=== PATIENT | female | born 1985 | race Caucasian/White ===

== ENCOUNTER 2019-05-26 16:55 | Outpatient (CLI) | payer OTHER, SELFPAY ==
--- NOTE | ~2019-05-26 | XR_ITS ---
EXAMINATION: XR foot LT min 3V DATE: 05/26/2019 17:16 INDICATION: Lateral foot pain TECHNIQUE: Dorsoplantar, lateral, and 2 oblique views of the left foot were obtained. COMPARISON: None. FINDINGS: Soft tissue swelling surrounds the fifth metatarsal without evidence of acute underlying os seous abnormality. The joint spaces are normal. No acute osseous finding is seen. IMPRESSION: 1. Soft tissue swelling surrounding the fifth metatarsal which could reflect infection. No underlying acute osseous abnormality is seen. Reviewed, dictated and finalized at location A. [employer] HEL[employer] IMPRESSION: 1. Soft tissue swelling surrounding the fifth metatarsal which could reflect in fection. No underlying acute osseous abnormality is seen.
== END 2019-05-26 16:56 | disposition home or self-care (01) ==
LOC: CHSIMG 16:58
PROVIDERS: PCP Internal Medicine; Visit Provider Nurse Practitioner Family
DX: M79.672 Pain in left foot (principal)
CPT/HCPCS: 73630

== ENCOUNTER 2019-05-27 08:47 | Outpatient (CLI) | payer OTHER, SELFPAY ==
[2019-05-27 08:56] LABS: Basophils Absolute Auto 0.07 K/mm3 (0.00-0.10); Basophils Percent Auto 0.8 % (0.0-1.0); Eosinophils Percent Auto 3.6 % (1.0-6.0); Hematocrit 39.6 % (35.0-49.0); Hemoglobin 13.4 g/dL (12.0-15.0); Immature Granulocyte Absolute 0.03 K/mm3 (0.00-0.00); Immature Granulocyte Percent A 0.4 % (0.0-0.0); Lymphocytes Absolute Auto 2.53 K/mm3 (1.10-4.50); Lymphocytes Percent Auto 30.6 % (18.0-42.0); Mean Corpuscular HGB Conc 33.8 g/dL (32.0-36.0); Mean Corpuscular Hemoglobin 31.1 pg (27.0-31.0); Mean Corpuscular Volume 91.9 fL (78.0-102.0); Mean Platelet Volume 10.1 fl (9.2-11.8); Monocytes Absolute Auto 0.76 K/mm3 (0.10-0.90); Monocytes Percent Auto 9.2 % (2.0-11.0); Neutrophils Absolute Auto 4.6 K/mm3 (1.7-7.2); Neutrophils Percent Auto 55.4 % (50.0-70.0); Platelet Count Result 292 K/mm3 (150-420); Red Blood Count 4.31 M/mm3 (4.20-5.40); Red Cell Distribution Width 12.5 % (11.6-14.4); White Blood Count 8.3 K/mm3 (4.8-10.8)
[2019-05-27 09:00] LABS: Add Urine Microscopic? NO; Appearance Urine Clear (Clear); Bilirubin Urine Negative (Negative); Blood Urine Negative (Negative); Color Urine Yellow (Yellow); Glucose Urine UA Negative (Negative); Ketones Urine Negative (Negative); Leukocyte Esterase Ur Negative LEU/UL (Negative); Nitrate Urine Negative (Negative); Protein Urine Negative (Negative); Urobilinogen Urine 0.2 mg/dL (0.2-1.0); pH Urine 6.5 (5.0-8.0)
[2019-05-27 09:46] LABS: Alanine Aminotransferase 56 U/L (14-59); Albumin Level 3.9 g/dL (3.4-5.0); Alkaline Phosphatase 58 U/L (46-116); Anion Gap 15.3 mmol/L (7-16); Aspartate Amino Transferase 28 U/L (15-37); Bilirubin,Total 0.3 mg/dL (0.00-1.00); Blood Urea Nitrogen 19 mg/dL (7-18); Calcium 8.8 mg/dL (8.5-10.1); Carbon Dioxide 25 mmol/L (21-32); Chloride 104 mmol/L (98-108); Cholesterol 220 mg/dL (0-200); Estimated Glomerular Filt Rate 60; Free T4 Free Thyroxine 0.58 ng/dL (0.76-1.46); Glucose 93 mg/dL (70-99); HDL Direct 69 mg/dL (40-60); LDL Cholesterol Calculated 138 mg/dL (<130); Osmolality Calculated 292 mOsm/kg (285-295); Potassium 4.3 mmol/L (3.5-5.1); Sodium 140 mmol/L (136-145); Thyroid Stimulating Hormone 13.76 uIU/mL (0.36-3.74); Total Protein 7.1 g/dL (6.4-8.2); Triglycerides 63 mg/dL (0-150)
[2019-05-27 11:27] LABS: CRP < 0.2 mg/dL (0.0-0.9)
== END 2019-05-27 08:48 | disposition home or self-care (01) ==
LOC: CHSLAB 08:47
PROVIDERS: PCP Internal Medicine; Visit Provider Nurse Practitioner Family
DX: Z00.00 Encounter for general adult medical examination without abnormal findings (principal)
CPT/HCPCS: 36415; 80053; 80061; 81003; 82785; 84439; 84443; 84550; 85025; 86003; 86140

== ENCOUNTER → 2019-06-19 09:06 | Outpatient (CLI) | payer OTHER, SELFPAY ==
--- NOTE | ~2019-06-19 | XR_ITS ---
EXAMINATION: XR femur RT min 2V DATE: 06/19/2019 09:48 INDICATION: Swelling and discomfort at the anterior lower thigh post injury 2 1/2 years prior. TECHNIQUE: AP and lateral views of the right thigh/femur were obtained on overlapping images. COMPARISON: None. FINDINGS: Alignment is normal. No fracture. Joint spaces are normal. Soft tissues are unremarkable. IMPRESSION: 1. Negative right thigh/femur radiographs. Reviewed, dictated and finalized at location A. [employer]
== END ==
PROVIDERS: PCP Internal Medicine; Visit Provider Surgery Plastic and Reconstructive Surgery
DX: R22.41 Localized swelling, mass and lump, right lower limb (principal)
CPT/HCPCS: 73552

== ENCOUNTER → 2019-07-16 08:59 | Outpatient (CLI) | payer OTHER, SELFPAY ==
--- NOTE | ~2019-07-16 | MR_ITS ---
EXAMINATION: MR femur RT wo/w con DATE: 07/16/2019 10:24 INDICATION: Right anterior thigh pain and swelling. TECHNIQUE: Magnetic resonance imaging (MRI) of the right femur was performed without and with 19 mm M ultiHance intravenous contrast. Sequences included axial, coronal, and sagittal T1-weighted FSE and T 2-weighted FS FSE, axial T1-weighted FS FSE, and postcontrast axial, coronal, and sagittal T1-weighte d FS FSE. COMPARISON: Right femur radiographs 06/19/2019 FINDINGS: There is lateral subluxation of patella. No fracture. Bone marrow signal intensity is daljit l. There is moderate osteoarthritis of patellofemoral compartment and mild osteoarthritis of medial a nd lateral compartments. There is a small knee joint effusion. There is anterior and lateral subcutan eous fat stranding in the distal thigh. The muscles demonstrate normal signal intensity. There is no abnormal mass. IMPRESSION: 1. Moderate right knee osteoarthritis. 2. Small right knee joint effusion. 3. Subcutaneous fat stranding in the anterior and lateral distal thigh, likely inflammation/scarring. Reviewed, dictated and finalized at location A.
[2019-07-16 09:29] LABS: Estimated Glomerular Filt Rate > 60
== END ==
PROVIDERS: Visit Provider Surgery Plastic and Reconstructive Surgery
DX: M17.11 Unilateral primary osteoarthritis, right knee (principal); M25.461 Effusion, right knee
CPT/HCPCS: 36415; 73720; A9577

== ENCOUNTER 2020-02-19 00:50 | Outpatient (CLI) | payer OTHER, SELFPAY ==
[2020-02-19 20:27] LABS: SARS-CoV-2 RNA PCR Negative
== END 2020-02-19 00:51 | disposition home or self-care (01) ==
LOC: ANHCOVIDDT 00:50
PROVIDERS: Visit Provider Obstetrics & Gynecology
DX: Z01.812 Encounter for preprocedural laboratory examination (principal); Z20.828 Contact with and (suspected) exposure to other viral communicable diseases
CPT/HCPCS: 87635; C9803; U0003

== ENCOUNTER 2020-02-22 01:23 | Day surgery (SDC) | payer OTHER, SELFPAY ==
[2020-02-19 10:06] VITALS: BMI 36.6
--- NOTE | 2020-02-19 15:48 | WPDANESEPPF ---
Anes - Initial Pre Proc Eval Procedure: Operation Date: 02/22/20 13:15 Proposed Procedures p Suction Dilation And Curettage - Hernando Fuentes MD Date/Time: 02/19/20 15:48 Surgeon: Hernando Fuentes MD Pre Op Diagnosis: Missed Patient Data Age: 34 Gender: F Height: 1.73 m Weight: 109.09 kg Allergies Allergy/AdvReac Type Severity Reaction Status Date / Time No Known Allergies Allergy Unverified 02/19/20 10:07 Home Medications Medication Instructions Recorded Confirmed Type acetaminophen [Tylenol] 325 mg PO ONCE PRN 02/19/20 02/19/20 History ibuprofen 800 mg PO Q6H PRN 02/19/20 02/19/20 History levothyroxine 100 mcg PO DAILY 02/19/20 02/19/20 History 21-iron fu-folic acid 1 tablet PO DAILY 02/19/20 02/19/20 History [ Complete] PMFSH Past Medical History Medical History (Updated 02/19/20 @ 15:50 by Harrison Brown MD) Hypothyroidism Obesity Surgical History Surgical History (Updated 05/13/19 @ 07:22 by Sugar Aldrich) History of appendectomy History of removal of cyst Social History Social History Smoking status: Never smoker Spiritual care concerns: No Anes - Eval Final PreProcedure Day of Procedure 02/19/20 15:48 Patient weight: obese Heart: regular rate and rhythm Lungs: clear to auscultation and normal air movement Airway: Mallampati scale class II Neurological: alert and oriented Last oral intake: >/= 8 hours ASA classification: III Emergent: no Anesthetic plan: proceed Anesthesia type and monitoring: general GIVS Informed Consent: The patient's anesthetic plan and its attendant risks and benefits were discussed with the patient/family/POA. Questions were solicited and answers provided to the satisfaction of the patient/family/POA.
--- NOTE | 2020-02-22 07:37 | P.HP_ITS ---
H&P: HPI History of Present Illness Date/Time: 02/22/20 07:37 Chief complaint: Missed Narrative: 35 y/o with a LMP 12/05/19 giving a due date of 09/10/20, putting her at 11w2d today. Was seen for a new ob visit last week. FHR not auscultated, so ultrasound exam was performed. An intrauterine gestational sac was seen, but no yolk sac or embryo seen. No bleeding. No cramping. Review of Systems Review of Systems: All systems reviewed & are unremarkable except as noted in HPI and below PMFSH Past Medical History Medical History Hypothyroidism Obesity Surgical History Surgical History History of appendectomy History of removal of cyst Social History Social History Smoking status: Never smoker Spiritual care concerns: No Meds Home Medications and Allergies Home Medications Medication Instructions Recorded Confirmed Type acetaminophen [Tylenol] 325 mg PO ONCE PRN 02/19/20 02/19/20 History ibuprofen 800 mg PO Q6H PRN 02/19/20 02/19/20 History levothyroxine 100 mcg PO DAILY 02/19/20 02/19/20 History 21-iron fu-folic acid 1 tablet PO DAILY 02/19/20 02/19/20 History [ Complete] Allergies Allergy/AdvReac Type Severity Reaction Status Date / Time No Known Allergies Allergy Unverified 02/19/20 10:07 Exam Const: Orientation/consciousness: patient oriented x3 Other: Well- developed, well-nourished female in no acute distress. Neck: Thyroid: thyroid normal Lymphatic: no lymphadenopathy noted (in neck, axilla or inguinal nodes) Resp: Effort & Inspection: normal respiratory effort Auscultation: clear to auscultation bilaterally Cardio: Rate: regular rate Rhythm: regular rhythm Heart sounds: S1 normal heart sound present and S2 normal heart sound present GI: Other: ABD: Soft, nontender, nondistended. No guarding or rebound tenderness. No hepatosplenomegaly. : General: Yes no CVA tenderness Other: External genitalia: normal female hair distribution, without lesion. Urethral meatus: no lesion, non prolapsed. Bladder: no mass, nontender Vagina: well-estrogenized, without lesion or discharge. No cystocele or rectocele. Cervix: no lesion or discharge. Uterus: small, anteverted, freely mobile, nontender Adnexa: no mass or tenderness. Anus/perineum: no lesions, nontender Back/Spine/Pelvis: Back: no CVA tenderness Skin: General skin exam: normal color and no rashes or lesions noted Neuro: General: patient oriented x3 Extrem: Other: Extremities: nontender with no edema Psych: Mental Status: mental status grossly normal Affect: normal affect Assessment and Plan Assessment and plan (1) Missed : Code(s): O02.1 - Missed Status: Acute Assessment and Plan: I offered expectant management vs. surgical management. She understands risks of surgery to include risks of anesthesia, risks of pain, infection, bleeding, blood products, thromboembolic phenomena and damage to adjacent structures such as bowel, bladder, ureters, blood vessels and nerves. She understands all these risks and elects to proceed with dilation and suction curettage.
[2020-02-22 11:28] VITALS: BP 133/85; PULSE 78; RESP 16; TEMP 36.3; O2SAT 100
[2020-02-22] MEDS: LACTATED RINGERS 1,000 ML 30 ML IV CONT (11:50)
[2020-02-22] MEDS: ACETAMINOPHEN 500 MG TABLET 1000 MG PO (11:56)
--- NOTE | 2020-02-22 12:20 | WPDANESEPPF ---
Anes - Initial Pre Proc Eval Procedure: Operation Date: 02/22/20 13:15 Proposed Procedures p Suction Dilation And Curettage - Hernando Fuentes MD Date/Time: 02/22/20 12:20 Surgeon: Hernando Fuentes MD Pre Op Diagnosis: Missed Patient Data Age: 35 Gender: F Height: 5 ft 8 in Weight: 108.7 kg Last Vital Signs Temp 36.3 C L 02/22/20 11:28 Pulse 78 02/22/20 11:28 Resp 16 02/22/20 11:28 BP 133/85 02/22/20 11:28 Pulse Ox 100 02/22/20 11:28 Allergies Allergy/AdvReac Type Severity Reaction Status Date / Time No Known Allergies Allergy Unverified 02/22/20 12:00 Home Medications Medication Instructions Recorded Confirmed Type acetaminophen [Tylenol] 325 mg PO ONCE PRN 02/19/20 02/22/20 History ibuprofen 800 mg PO Q6H PRN 02/19/20 02/22/20 History levothyroxine 100 mcg PO DAILY 02/19/20 02/22/20 History 21-iron fu-folic acid 1 tablet PO DAILY 02/19/20 02/22/20 History [ Complete] Patient hx anesthesia problems: none Family hx anesthesia problems: none PMFSH Past Medical History Medical History Hypothyroidism Obesity Surgical History Surgical History History of appendectomy History of removal of cyst Social History Social History Smoking status: Never smoker Spiritual care concerns: No Anes - Eval Final PreProcedure Day of Procedure 02/22/20 12:20 Patient weight: obese Heart: regular rate and rhythm Lungs: clear to auscultation Airway: Mallampati scale class II Neurological: alert and oriented Last oral intake: >/= 8 hours ASA classification: II Emergent: no Anesthetic plan: proceed Anesthesia type and monitoring: general GIVS and standard monitoring Informed Consent: The patient's anesthetic plan and its attendant risks and benefits were discussed with the patient/family/POA. Questions were solicited and answers provided to the satisfaction of the patient/family/POA.
--- NOTE | 2020-02-22 13:16 | WPDHPUPDATE1 ---
History and Physical Update Update Date/Time: 02/22/20 13:16 History and Physical has been reviewed, including an updated exam of the patient. There are NO changes in the patient's condition. Risks, benefits, and alternatives have been discussed and questions answered. Patient agrees to proceed with procedure.
--- NOTE | 2020-02-22 13:54 | PM.PROC ---
Procedure Note - Detailed Date of procedure: 02/22/20 Pre-op diagnosis: Missed Post-op diagnosis: same Procedure performed: Dilation and suction curettage Description of procedure: The patient was taken to the operating room where she was prepared and draped in the usual sterile fashion in the dorsal lithotomy position. The bladder was drained with a red rubber catheter. A sterile speculum was placed into the vagina. The anterior lip of the cervix was grasped with a single-tooth tenaculum. Ten mL of 1% lidocaine was administered in a paracervical block. The cervix was gently dilated using Hegar dilators until an 8mm dilator could be passed. The 8mm curved tip suction curette was advanced. Suction curettage was performed and products of conception were aspirated. Sharp curettage was then performed until a good uterine cry was noted. A final pass with the suction curette was made. The tenaculum was removed. Hemostasis was excellent. Sponge, lap, needle and instrument counts were correct. The patient was taken to the recovery room in stable condition. I was present and scrubbed for the entire procedure. Implants: None Anesthesia: MAC and local (paracervical block) Surgeon: Hernando Fuentes MD Estimated blood loss (mL): 20 Drains: No Packing: No Pathology: yes (endometrial curettings) Complications: None Condition: stable Disposition: PACU Findings: Products of conception noted
[2020-02-22 13:57] VITALS: BP 125/88; PULSE 96; RESP 16
[2020-02-22] MEDS: RHO(D) IMMUNE GLOBULIN 300 MCG SYRINGE IM (14:15)
[2020-02-22 14:20] VITALS: BP 125/88; PULSE 95; RESP 16
[2020-02-22] MEDS: SCOPOLAMINE 1.5 MG PATCH TRANSDERM (14:38)
[2020-02-22 14:40] VITALS: BP 115/84; PULSE 85; RESP 16
[2020-02-22 14:50] VITALS: BP 107/69; PULSE 67; RESP 16
== END 2020-02-22 15:00 | disposition home or self-care (01) ==
PROVIDERS: PCP Internal Medicine; Visit Provider Obstetrics & Gynecology
PROC: (CPT 59820; principal; 2020-02-22 13:15)
DX: O02.1 Missed abortion (principal); O99.281 Endocrine, nutritional and metabolic diseases complicating pregnancy, first trimester
CPT/HCPCS: 59820; 36415; 85461; 88305; 90384; A9270; J1100; J2250; J2405; J2590; J2704; J2790; J3010; J7120

== ENCOUNTER 2020-06-08 14:13 | Outpatient (RCR) | payer OTHER, SELFPAY ==
[2020-06-08] MEDS: RHO(D) IMMUNE GLOBULIN 300 MCG SYRINGE IM (17:17)
== END 2020-09-06 23:59 | disposition home or self-care (01) ==
LOC: ANHLAB 14:13
PROVIDERS: PCP Internal Medicine; Visit Provider Student in an Organized Health Care Education/Training Program
DX: Z29.13 Encounter for prophylactic Rho(D) immune globulin (principal); O36.0990 Maternal care for other rhesus isoimmunization, unspecified trimester, not applicable or unspecified; Z3A.00 Weeks of gestation of pregnancy not specified
CPT/HCPCS: 36415; 85461; 90384; 96372; J2790

== ENCOUNTER 2021-03-16 12:04 | Outpatient (RCR) | payer OTHER, SELFPAY ==
[2021-03-16] MEDS: RHO(D) IMMUNE GLOBULIN 300 MCG/2 ML SYRINGE IM (16:12)
== END 2021-06-14 23:59 | disposition home or self-care (01) ==
LOC: ANHLAB 12:04
PROVIDERS: PCP Internal Medicine; Visit Provider Obstetrics & Gynecology
DX: Z29.13 Encounter for prophylactic Rho(D) immune globulin (principal); O36.0190 Maternal care for anti-D [Rh] antibodies, unspecified trimester, not applicable or unspecified; Z3A.00 Weeks of gestation of pregnancy not specified
CPT/HCPCS: 36415; 85461; 90384; 96372; J2790

== ENCOUNTER 2021-05-04 15:59 | Inpatient (IN) | payer OTHER, SELFPAY ==
[2021-05-04] VITALS (10 sets, daily range): BP systolic 139–156; BP diastolic 97–106; PULSE 65–68; TEMP 37.1; BMI 35.4
[2021-05-04 16:39] LABS: Hematocrit 42.7 % (37.0-47.0); Hemoglobin 14.3 g/dL (12.0-15.0); Mean Corpuscular HGB Conc 33.5 g/dl (32-36); Mean Corpuscular Hemoglobin 30.3 pg (26-34); Mean Corpuscular Volume 90.5 fl (80-100); Mean Platelet Volume 12.7 fl (7.4-10.4); Platelet Count Result 227 k/mm3 (150-375); Red Blood Count 4.72 M/mm3 (4.2-5.4); Red Cell Distribution Width 14.2 % (11.5-14.5); White Blood Count 15.9 K/mm3 (4.5-10.0)
[2021-05-04 16:47] LABS: Add Urine Microscopic? YES; Appearance Urine Clear (Clear); Bilirubin Urine Negative (Negative); Blood Urine Negative (Negative); Color Urine Amber (Yellow); Glucose Urine UA Negative (Negative); Ketones Urine Negative (Negative); Leukocyte Esterase Ur Negative LEU/UL (Negative); Mucus Urine Rare /lpf; Nitrate Urine Negative (Negative); Protein Urine 1+ mg/dL (Negative); RBC Urine 0-2 /hpf (0-2); Specific Grav Ur 1.013 (1.001-1.035); Squamous Epithelial Cell Urine Many /hpf (Few); Urobilinogen Urine Negative mg/dL (<2.0)
[2021-05-04 16:48] LABS: Creatinine Urine 116.5 mg/dL; Total Protein Urine Random 40 mg/dL; Ur Ttl Prot Creatinine Ratio 0.34 mg/mg (0-0.20)
[2021-05-04 16:55] LABS: Alanine Aminotransferase 357 U/L (4-35); Albumin Level 3.3 g/dL (3.5-5.1); Alkaline Phosphatase 389 U/L (38-126); Anion Gap 11 mmol/L (8-16); Aspartate Amino Transferase 352 U/L (14-36); Bilirubin,Total 3.4 mg/dL (0.2-1.3); Blood Urea Nitrogen 21 mg/dL (7-17); Calcium 9.7 mg/dL (8.4-10.2); Carbon Dioxide 18 mmol/L (22-30); Chloride 104 mmol/L (98-107); Estimated Glomerular Filt Rate 25; Glucose 80 mg/dL (65-110); Potassium 4.3 mmol/L (3.4-5.0); Sodium 133 mmol/L (137-145); Uric Acid 11.5 mg/dL (2.5-7.5)
[2021-05-04 17:20] LABS: Band Neutrophils Percent 2 % (0-6); Neutrophils Absolute Manual 9.22 K/mm3 (1.7-7.2); Neutrophils Percent Manual 56 % (46-73); Total Cells Counted 100
--- NOTE | 2021-05-04 17:25 | PC.NURSE ---
Dr. Fuentes on unit and reviewed BP's and lab results. MD going to office to get pt's and will be back down and decide on orders.
[2021-05-04 17:26] LABS: Lymphocytes Absolute Manual 5.88 K/mm3 (1.1-4.5); Lymphocytes Percent Manual 37 % (18-44); Metamyelocytes Percent 1 %; Monocytes Absolute Manual 0.63 K/mm3 (0.1-0.90); Monocytes Percent Manual 4 % (3-9)
[2021-05-04 17:27] LABS: Nucleated Red Blood Cells 6 %; Platelet Estimate Adequate (Adequate); Smudge Cells FEW
[2021-05-04 17:28] LABS: Atypical Lymphocytes Present; Large Platelets Present; Ovalocytes 1+ (NORMAL); Target Cells 1+ (NORMAL)
--- NOTE | 2021-05-04 17:53 | PM.IMHP ---
H&P: HPI History of Present Illness Date/Time: 05/04/21 17:53 36 y/o at 35 weeks gestation with elevated bp in the office. No headache, no visual field change, no abdominal pain, good movement. Chief Complaint: High blood pressure Review of Systems Review of Systems: All systems reviewed & are unremarkable except as noted in HPI and below PMFSH Past Medical History Medical History Hypothyroidism Obesity Surgical History Surgical History History of appendectomy History of removal of cyst Social History Social History Smoking status: Never smoker Spiritual care concerns: No Meds Home Medications and Allergies Home Medications Medication Instructions Recorded Confirmed Type acetaminophen [Tylenol] 325 mg PO ONCE PRN 02/19/20 02/22/20 History ibuprofen 800 mg PO Q6H PRN 02/19/20 02/22/20 History levothyroxine 100 mcg PO DAILY 02/19/20 02/22/20 History 21-iron fu-folic acid 1 tablet PO DAILY 02/19/20 02/22/20 History [ Complete] hydrocodone-acetaminophen [Mcdermott] 1 - 2 tablet PO Q6H PRN #20 tablet 02/22/20 Rx Allergies Allergy/AdvReac Type Severity Reaction Status Date / Time No Known Allergies Allergy Unverified 02/22/20 12:00 Vital Signs Vital Signs - 24 hr 05/04/21 16:30 05/04/21 16:45 05/04/21 17:00 Pulse Rate 67 66 66 Blood Pressure 140/99 H 148/97 H 139/97 H 05/04/21 17:15 05/04/21 17:30 05/04/21 17:46 Pulse Rate 67 65 66 Blood Pressure 141/98 H 156/101 H 148/100 H Exam Const: Orientation/consciousness: patient oriented x3 Other: Well-developed, well-nourished female in no acute distress. Neck: Thyroid: thyroid normal Lymphatic: no lymphadenopathy noted (in neck, axilla or inguinal nodes) Resp: Effort & Inspection: normal respiratory effort Auscultation: clear to auscultation bilaterally Cardio: Rate: regular rate Rhythm: regular rhythm Heart sounds: S1 normal heart sound present and S2 normal heart sound present GI: Other: ABD: Soft, nontender, gravid, nondistended. No guarding or rebound tenderness. No hepatosplenomegaly. : General: Yes no CVA tenderness Other: Cervix closed, thick. GBS collected in office today. Back/Spine/Pelvis: Back: no CVA tenderness Skin: General skin exam: normal color and no rashes or lesions noted Neuro: General: patient oriented x3 Extrem: Other: Extremities: nontender with no edema Psych: Mental Status: mental status grossly normal Affect: normal affect H&P: Results Labs Labs: Short CBC 05/04/21 Range/Units 16:25 WBC 15.9 H (4.5-10.0) K/mm3 Hgb 14.3 (12.0-15.0) g/dL Hct 42.7 (37.0-47.0) % Plt Count 227 (150-375) k/mm3 BMP 05/04/21 16:25 Sodium 133 L Potassium 4.3 Chloride 104 Carbon Dioxide 18 L BUN 21 H Creatinine 2.20 H Glucose 80 Calcium 9.7 Liver Function 05/04/21 Range/Units 16:25 Total Bilirubin 3.4 H (0.2-1.3) mg/dL AST 352 H (14-36) U/L ALT 357 H (4-35) U/L Alkaline Phosphatase 389 H (38-126) U/L Albumin 3.3 L (3.5-5.1) g/dL Urine 05/04/21 Range/Units 16:25 Urine Color Kraen (Yellow) Urine Appearance Clear (Clear) Urine pH 5.0 (5.0-9.0) Ur Specific Zebulon 1.013 (1.001-1.035) Urine Protein 1+ H (Negative) mg/dL Urine Glucose (UA) Negative (Negative) mg/dL Assessment and Plan Assessment and plan (1) Preeclampsia: Code(s): O14.90 - Unspecified pre-eclampsia, unspecified trimester Status: Acute Assessment and Plan: A: IUP at 35 weeks with likely preeclampsia. Elevated bp, transaminases and creatinine. P: Offer steroids, IV hydration, repeat labs in AM. Ultrasound in AM for EFW, presentation, BASILIA.
--- NOTE | 2021-05-04 17:58 | PC.NURSE ---
Dr. Fuentes back on unit and orders received.
--- NOTE | 2021-05-04 18:05 | PC.NURSE ---
Dr. Fuentes spoke with pt over portable phone and discussed lab results, Celestone for lung maturity, in the [facility] 35 wk babies that deliver do good, but can have some initial problems with their breathing, feeding, or temperature control and the Celestone can help minimize those. Discussed plan for IV fluids, repeat labs in am to help determine how imminently baby needs delivered. Also, discussed U/S in am. Pt tearful, but has no further questions at this time. Additional orders received for Zofran and Protonix.
[2021-05-04] MEDS: BETAMETHASONE SOD PHOS/ACETATE 30 MG/5 ML VIAL 12 MG IM (19:21)
[2021-05-04] MEDS: ONDANSETRON INJ 4 MG/2 ML VIAL IV PUSH (19:21)
[2021-05-04] MEDS: LACTATED RINGERS 1,000 ML 125 ML IV CONT (19:21)
[2021-05-04] MEDS: PANTOPRAZOLE SODIUM IV 40 MG VIAL IV PUSH (21:58)
--- NOTE | 2021-05-04 23:09 | OBADM ---
This patient, Nita Valencia, admitted to the OB room OB Post 113 for observation. Patient/family oriented to hospital policies and general routines including ID bracelet, bed and alarms, visiting hours, pain management, procedures, bathroom and other care routines, personal items, smoking policy, room service/diet, and visiting hours. Patient/Family are encouraged to report perceived risks to care and to ask questions if they do not understand what they are told or what they should do.
[2021-05-05] VITALS (59 sets, daily range): BP systolic 105–159; BP diastolic 55–98; PULSE 55–95; RESP 12–20; TEMP 36.2–37.3; O2SAT 69–100
--- NOTE | 2021-05-05 01:53 | PHAR ---
PHARMACY VERIFIED HOME MED: *USE FROM HOME* LEVOTHYROXINE 100 MCG TABLET TAKE ONE TABLET BY MOUTH ONCE DAILY AT 06:00
[2021-05-05 05:15] LABS: Hematocrit 39.1 % (37.0-47.0); Hemoglobin 13.6 g/dL (12.0-15.0); Mean Corpuscular HGB Conc 34.8 g/dl (32-36); Mean Corpuscular Hemoglobin 30.8 pg (26-34); Mean Corpuscular Volume 88.5 fl (80-100); Mean Platelet Volume 12.5 fl (7.4-10.4); Platelet Count Result 222 k/mm3 (150-375); Red Blood Count 4.42 M/mm3 (4.2-5.4); Red Cell Distribution Width 14.1 % (11.5-14.5); White Blood Count 17.7 K/mm3 (4.5-10.0)
[2021-05-05 05:39] LABS: Alanine Aminotransferase 297 U/L (4-35); Alkaline Phosphatase 359 U/L (38-126); Anion Gap 10 mmol/L (8-16); Aspartate Amino Transferase 269 U/L (14-36); Bilirubin,Total 3.4 mg/dL (0.2-1.3); Blood Urea Nitrogen 19 mg/dL (7-17); Calcium 9.4 mg/dL (8.4-10.2); Carbon Dioxide 16 mmol/L (22-30); Chloride 102 mmol/L (98-107); Estimated CRCL calculation 40 ml/min; Estimated Glomerular Filt Rate 24; Glucose 117 mg/dL (65-110); Potassium 4.4 mmol/L (3.4-5.0); Sodium 128 mmol/L (137-145)
[2021-05-05 06:02] LABS: Uric Acid 10.7 mg/dL (2.5-7.5)
--- NOTE | 2021-05-05 07:51 | PM.OBPNLAB ---
Pain Control Date/time seen: 05/05/21 07:51 Comments: 36 yo at 35w1d with severe preeclampsia. Pt reports contractions starting overnight. Pelvic Exam Dilation (cm): 2 Effacement (%): 80 station: -2 Amniotic membrane status: Intact Contractions Monitor mode: External Contraction frequency: 3 Contraction pattern: Regular Status status: Category ll Assessment and Plan Assessment: induction ongoing Comments: Pt has severe preeclampsia by lab values. Her BP remain elevated. Pt noted to have regular contractions on tocometer. Will begin induction this AM due to severity of disease. Pt has received 1 dose of BTMS. cervical mcneil catheter placed. Will start abx for GBS unknown and prematurity.
[2021-05-05] MEDS: ONDANSETRON INJ 4 MG/2 ML VIAL IV PUSH (08:42)
[2021-05-05] MEDS: AMPICILLIN 2 GM/NS 100 ML 2 GM/100 ML BAG IVPB (08:43)
--- NOTE | 2021-05-05 08:51 | LDADM ---
This patient, Nita Valencia, was admitted to Labor/Delivery/Recovery 109 on 05/05/21 at 07:49. Plans for labor, pain management and were discussed with patient. Patient/family oriented to hospital policies and general routines including ID bracelet, bed and alarms, visiting hours, pain management, procedures, bathroom and other care routines, personal items, smoking policy, room service/diet and guest tray routines, security routines, and visiting hours. Patient/Family are encouraged to report perceived risks to care and to ask questions if they do not understand what they are told or what they should do. See OBIX for further documentation.
--- NOTE | 2021-05-05 11:21 | PM.OBPNLAB ---
Pain Control Date/time seen: 05/05/21 11:21 Pelvic Exam Dilation (cm): 4 Effacement (%): 80 station: -2 Amniotic membrane status: Intact Contractions Monitor mode: External Contraction frequency: 3 Contraction pattern: Regular Status status: Category ll Comments: repetitive prolonged terminal decelerations Assessment and Plan Assessment: induction ongoing Plan: Comments: FHT noted to have several repetitive prolonged decelerations. Pt had received O2 supplementation, IVF bolus, and had been repositioned. FHT had not improved with above measures. Decision was made to proceed with emergent delivery. Risks and benefits discussed wiht patient.
--- NOTE | 2021-05-05 11:23 | W.PM.PROC2 ---
Procedure Note - Detailed Date of Procedure 05/05/21 Pre-op Diagnosis severe preeclampsia non-reassuring FHT Post-op Diagnosis same Procedure Performed low transverse section Surgeon Ignacio Amado MD Anesthesia spinal and epidural Indications severe preeclampsia, non-reassuring FHT Description of Procedure The patient was taken to the operating room. A combined spinal epidural anesthesic was administered and found to be adequate at a t-10 level. The patient was placed in a supine position with a slight left lateral tilt. A mcneil catheter was placed with return of clear urine. A Bovie grounding pad was placed. Surgical prep was performed and surgical drapes were placed. A surgical time out was performed. A Pfannenstiel skin incision was then made with the scalpel and carried through to the underlying layer of fascia. The fascia was then incised in the midline and the incision was extended laterally with the Lubin scissors. The superior aspect of the fascia was then grasped with the Lorri clamps, elevated, and the underlying rectus muscles dissected off bluntly and sharply. Attention was then turned to the inferior aspect of this incision which, in a similar fashion, was grasped, tented up with the Lorri clamps, and the rectus muscles dissected off both bluntly and sharply. The rectus muscles were then in the midline. The peritoneum was identified and entered bluntly. The peritoneal incision was then extended superiorly and inferiorly with good visualization of the bladder. The vesico-uterine serosa was identified and dissected to create a bladder flap. The bladder blade was reinserted. The uterus was inspected for rotation. A low-transverse uterine incision was made sharply with the scalpel and entry was made into the uterine cavity. An amniotomy was made and copious amounts of meconium stained fluid was noted on return. The uterine incision was extended laterally bluntly. The bladder blade was removed and the fetus was delivered atraumatically. A nuchal cord x1 was noted and delivered through. The nose and mouth were suctioned with a bulb syringe. The umbilical cord was clamped twice and cut. The was handed off to the waiting staff. A second segment of umbilical cord was clamped and cut for cord blood gasses. Cord blood was collected for determination of the blood type and for direct Dsouza. The placenta was delivered spontaneously without difficulty. The placenta appeared grossly normal and complete. The uterus was exteriorized and cleared of all clots and debris. The uterine incision was repaired using 0-monocryl suture in a running fashion. A second layer of 0 Monocryl suture was used in an imbricating fashion to obtain excellent hemostasis and uterine strength. A right sided broad ligament hematoma was noted at the time of incision closure. Two figure of eight sutures were placed, one superior and one inferior to the hematoma to prevent spread. The hematoma was noted to be stable. The uterine incision was noted to be oozing so Bovie cautery and Hemaderm were applied. Good hemostasis was noted. The uterine closure was inspected for hemostasis. The posterior aspect of the uterus and the broad ligaments were inspected and the posterior cul-de-sac cleared of fluid and blood clots. The uterine closure was again inspected and found to be hemostatic. The uterus was returned to the abdominal cavity. The pericolic gutters were inspected and were cleared of all blood clots and debris. The uterine closure was then re inspected to ensure hemostasis as were all subfascial tissues. The peritoneum was closed using 3-0 vicryl in a running fashion. The fascia was reapproximated with 0-vicryl in a running fashion. The subcutaneous tissue was irrigated and hemostasis achieved with electrocautery. It was reapproximated with 3-0 vicryl in a running fashion. The skin was closed with 4-0 vicryl in a subcuticular fashion. A sterile dressing was ap
--- NOTE | 2021-05-05 11:26 | WPDANESEPPF ---
Anes - Initial Pre Proc Eval Procedure: Operation Date: 05/05/21 10:30 Proposed Procedures p Section - Ignacio Amado MD Date/Time: 05/05/21 11:26 Surgeon: Hernando Fuentes MD Pre Op Diagnosis: nst,pih labs Patient Data Age: 36 Gender: F Height: 1.74 m Weight: 107.2 kg Last Vital Signs Temp 37.3 C 05/05/21 09:00 Pulse 70 05/05/21 11:24 BP 118/75 05/05/21 11:24 Pulse Ox 97 05/05/21 11:24 Allergies Allergy/AdvReac Type Severity Reaction Status Date / Time No Known Allergies Allergy Unverified 02/22/20 12:00 Home Medications Medication Instructions Recorded Confirmed Type acetaminophen [Tylenol] 1,000 mg PO Q6H PRN 02/19/20 05/04/21 History levothyroxine 100 mcg PO DAILY 02/19/20 05/04/21 History 21-iron fu-folic acid 1 tablet PO DAILY 02/19/20 05/04/21 History [ Complete] famotidine [Pepcid] 20 mg PO BID 05/04/21 05/04/21 History Laboratory Tests 05/04/21 05/04/21 05/04/21 16:25 16:25 16:25 WBC 15.9 K/mm3 H K/mm3 (4.5-10.0) RBC 4.72 M/mm3 M/mm3 (4.2-5.4) Hgb 14.3 g/dL g/dL (12.0-15.0) Hct 42.7 % % (37.0-47.0) MCV 90.5 fl fl (80-100) MCH 30.3 pg pg (26-34) MCHC 33.5 g/dl g/dl (32-36) RDW 14.2 % % (11.5-14.5) Plt Count 227 k/mm3 k/mm3 (150-375) MPV 12.7 fl H fl (7.4-10.4) Immature Gran % (Auto) Not Reportable Neut % (Auto) Not Reportable Lymph % (Auto) Not Reportable [place] % (Auto) Not Reportable Eos % (Auto) Not Reportable Baso % (Auto) Not Reportable Lymph # (Auto) Not Reportable [place] # (Auto) Not Reportable Eos # (Auto) Not Reportable Baso # (Auto) Not Reportable Abs Immat Gran (auto) Not Reportable Absolute Neuts (auto) Not Reportable Absolute Nucleated RBC Not Reportable Total Counted 100 Neutrophils % (Manual) 56 % % (46-73) Band Neutrophils % 2 % % (0-6) Lymphocytes % (Manual) 37 % % (18-44) Monocytes % (Manual) 4 % % (3-9) Metamyelocytes % 1 % % Nucleated RBC % Not Reportable Abs Neuts (Manual) 9.22 K/mm3 H K/mm3 (1.7-7.2) Abs Lymphs (Manual) 5.88 K/mm3 H K/mm3 (1.1-4.5) Abs Monocytes (Manual) 0.63 K/mm3 K/mm3 (0.1-0.90) Nucleated RBCs 6 % % Atypical Lymphocytes Present Smudge Cells Few Platelet Estimate Adequate (Adequate) Large Platelets Present Target Cells 1+ (NORMAL) Ovalocytes 1+ (NORMAL) Sodium 133 mmol/L L mmol/L (137-145) Potassium 4.3 mmol/L mmol/L (3.4-5.0) Chloride 104 mmol/L mmol/L (98-107) Carbon Dioxide 18 mmol/L L mmol/L (22-30) Anion Gap 11 mmol/L mmol/L (8-16) BUN 21 mg/dL H mg/dL (7-17) Creatinine 2.20 mg/dL H mg/dL (0.7-1.0) Estim Creat Clear Calc Not Reportable Estimated GFR 25 L (59 - ) Glucose 80 mg/dL mg/dL (65-110) Uric Acid 11.5 mg/dL H mg/dL (2.5-7.5) Calcium 9.7 mg/dL mg/dL (8.4-10.2) Total Bilirubin 3.4 mg/dL H mg/dL (0.2-1.3) AST 352 U/L H U/L (14-36) ALT 357 U/L H U/L (4-35) Alkaline Phosphatase 389 U/L H U/L (38-126) Total Protein 6.0 g/dL L g/dL (6.3-8.2) Albumin 3.3 g/dL L g/dL (3.5-5.1) Urine Color Urine Appearance Urine pH Ur Specific [place] Urine Protein Urine Glucose (UA) Urine Ketones Ur Blood (Man) Urine Nitrate Urine Bilirubin Urine Urobilinogen Leukocyte Esterase Rfl
[2021-05-05 12:45] LABS: HIV 1/2 Ab P24 Ag Result Negative (Negative)
[2021-05-05] MEDS: diphenhydrAMINE HCl INJ 50 MG/ML VIAL 25 MG IV PUSH (13:20)
--- NOTE | 2021-05-05 13:58 | PC.NURSE ---
Patient transferred to post room #291 per stretcher from labor and delivery. Support person present. Oriented to unit, room, information board, rooming in, admission packet and security measures. Patient verbalizes understanding.
[2021-05-05] MEDS: HYDROcodone/acetaminophen (*CRX) 5-325 MG TABLET 1 TAB PO (17:02)
[2021-05-05] MEDS: DOCUSATE SODIUM 100 MG CAPSULE PO (17:02)
[2021-05-05] MEDS: KETOROLAC 30 MG/ML VIAL (*BKC) IV PUSH (17:03)
[2021-05-05] MEDS: DEXTROSE 5%/0.45% SOD CHL 1,000 ML 125 ML (17:06)
[2021-05-06] MEDS: DEXTROSE 5%/0.45% SOD CHL 1,000 ML 125 ML IV CONT (00:05)
[2021-05-06 05:30] VITALS: BP 120/86; PULSE 69; PULSE 98; RESP 18; TEMP 36.6; O2SAT 98
[2021-05-06] MEDS: LEVOTHYROXINE SODIUM 100 MCG TABLET PO (05:44)
[2021-05-06 06:02] LABS: Basophils Absolute Auto 0.1 K/mm3 (0.0-0.1); Basophils Percent Auto 0.2 % (0.2-1.2); Hematocrit 26.7 % (37.0-47.0); Immature Granulocyte Percent A 3.6 % (0-0.5); Lymphocytes Absolute Auto 2.98 K/mm3 (0.9-3.2); Lymphocytes Percent Auto 11.8 % (18.3-44.2); Mean Corpuscular HGB Conc 33.7 g/dl (32-36); Mean Corpuscular Hemoglobin 30.3 pg (26-34); Mean Corpuscular Volume 89.9 fl (80-100); Mean Platelet Volume 12.9 fl (7.4-10.4); Monocytes Absolute Auto 1.7 K/mm3 (0.1-0.6); Monocytes Percent Auto 6.8 % (2.6-8.5); Neutrophils Absolute Auto 19.6 K/mm3 (1.3-6.7); Neutrophils Percent Auto 77.6 % (45.5-73.1); Nucleated Red Blood Cells Absolute Auto 0.6 K/mm3 (0.0-0.012); Nucleated Red Blood Cells Perc 2.5 % (0.0-0.2); Platelet Count Result 221 k/mm3 (150-375); Red Blood Count 2.97 M/mm3 (4.2-5.4); Red Cell Distribution Width 14.6 % (11.5-14.5); White Blood Count 25.2 K/mm3 (4.5-10.0)
[2021-05-06 06:17] LABS: Alanine Aminotransferase 140 U/L (4-35); Albumin Level 2.2 g/dL (3.5-5.1); Alkaline Phosphatase 203 U/L (38-126); Anion Gap 7 mmol/L (8-16); Aspartate Amino Transferase 115 U/L (14-36); Bilirubin,Total 1.2 mg/dL (0.2-1.3); Blood Urea Nitrogen 23 mg/dL (7-17); Calcium 7.6 mg/dL (8.4-10.2); Carbon Dioxide 19 mmol/L (22-30); Chloride 99 mmol/L (98-107); Estimated CRCL calculation 33 ml/min; Estimated Glomerular Filt Rate 19; Glucose 150 mg/dL (65-110); Potassium 4.7 mmol/L (3.4-5.0); Sodium 125 mmol/L (137-145)
--- NOTE | 2021-05-06 08:28 | PM.OBPNVD ---
OB - PN: Subj Subjective Date/time seen: 05/06/21 08:28 Interval history: Patient doing well this AM. she is ambulating out of bed. She is tolerating PO. She reports adequate pain control. Her bleeding is normal and she reports normal lochia. She denies fever, chills, N/V. She has not yet passed flatus. Patient comments: no complaints and pain well controlled; no flatus present OB - PN: Obj Data Labs CBC & Chem 7: 05/06/21 05:30 05/06/21 05:29 Labs: Laboratory Results - last 24 hr 05/05/21 05/05/21 05/06/21 05:09 05:09 05:29 WBC RBC Hgb Hct MCV MCH MCHC RDW Plt Count MPV Immature Gran % (Auto) Neut % (Auto) Lymph % (Auto) [place] % (Auto) Eos % (Auto) Baso % (Auto) Lymph # (Auto) [place] # (Auto) Eos # (Auto) Baso # (Auto) Abs Immat Gran (auto) Absolute Neuts (auto) Absolute Nucleated RBC Nucleated RBC % Sodium 125 L Potassium 4.7 Chloride 99 Carbon Dioxide 19 L Anion Gap 7 L BUN 23 H Creatinine 2.80 H Estim Creat Clear Calc 33 Estimated GFR 19 L Glucose 150 H Calcium 7.6 L Total Bilirubin 1.2 AST 115 H ALT 140 H Alkaline Phosphatase 203 H Total Protein 4.0 L Albumin 2.2 L HIV 1&2 Ab/P24 Ag 4thGn Negative Blood Type A Negative Antibody Screen Positive Antibody Identification Passive Due to RH Imm Glob Antigen Identification Cancelled GLADYS, IgG Interpret Not Performed GLADYS, Poly Interpret Neg GLADYS, Complement Interp Not Performed Screen Baby's Blood Type Baby's GLADYS Doses of RhIg Required 05/06/21 05/06/21 05:30 05:30 WBC 25.2 H RBC 2.97 L Hgb 9.0 L D Hct 26.7 L MCV 89.9 MCH 30.3 MCHC 33.7 RDW 14.6 H Plt Count 221 MPV 12.9 H Immature Gran % (Auto) 3.6 H Neut % (Auto) 77.6 H Lymph % (Auto) 11.8 L [place] % (Auto) 6.8 Eos % (Auto) 0.0 Baso % (Auto) 0.2 Lymph # (Auto) 2.98 [place] # (Auto) 1.7 H Eos # (Auto) 0.0 Baso # (Auto) 0.1 Abs Immat Gran (auto) 0.90 H Absolute Neuts (auto) 19.6 H Absolute Nucleated RBC 0.6 H Nucleated RBC % 2.5 H Sodium Potassium Chloride Carbon Dioxide Anion Gap BUN Creatinine Estim Creat Clear Calc Estimated GFR Glucose Calcium Total Bilirubin AST ALT Alkaline Phosphatase Total Protein Albumin HIV 1&2 Ab/P24 Ag 4thGn Blood Type A Negative Antibody Screen TNP Antibody Identification Antigen Identification GLADYS, IgG Interpret GLADYS, Poly Interpret GLADYS, Complement Interp Screen Negative Baby's Blood Type O pos Baby's GLAYDS Positive Doses of RhIg Required 1 OB - PN A/P Plan day: 1 Plan: routine care Comments: patient doing well this AM s/p mcneil, voiding spontaneously tolerating PO H/H 01/08, asymptomatic, will start iron, repeat CBC tomorrow AST/ALT improving Cr remains elevated will repeat CMP tomorrow BP remain normal, denies any PreE symptoms continue routine PP care plan for circumcision today, risks, benefits, alternatives discussed, consent obtained Time Spent With Patient Time: Total time spent is greater than 50% in coordination of care (as documented) at patient's floor/unit and/or counseling patient: Time with patient: less than 15 minutes Review of Systems Constitutional: Constitutional: Reports no additional constitutional complaints Cardiovascular: Cardiovascular: Reports no additional cardiovascular complaints Respiratory: Respiratory: Reports no additional respiratory complaints Gastrointestinal: Gastrointestinal: Reports no additional gastrointestinal complaints Genitourinary: Genitourinary: Reports no additional female genitourinary complaints Exam Const: General: comfortable and no acute distress Resp: Effort & Inspection: normal respiratory effort Auscultation: clear to auscultation
[2021-05-06] MEDS: POLYSACCHARIDE IRON COMPLEX 150 MG CAPSULE PO ×2 (08:49→17:18)
[2021-05-06] MEDS: DOCUSATE SODIUM 100 MG CAPSULE PO ×2 (08:49→17:18)
[2021-05-06] MEDS: HYDROcodone/acetaminophen (*CRX) 5-325 MG TABLET 1 TAB PO ×3 (08:50→20:28)
[2021-05-06] MEDS: IBUPROFEN 600 MG TABLET PO ×3 (08:50→20:39)
--- NOTE | 2021-05-06 11:16 | WPDANLDPN2 ---
Anes-Prog Note L&D Date/Time: 05/06/21 11:16 Comfortable throughout: section Neuraxial method: spinal Epidural/Spinal procedure site: clean & non-tender Neuro status: Neuro function grossly intact. Cardiovascular status: normal Respiratory status: normal Airway patency: baseline Mental status: baseline Post-Op hydration status: normal Vital Signs: Last Vital Signs Temp 98 F 05/06/21 05:30 Pulse 69 05/06/21 05:30 Resp 18 05/06/21 05:30 BP 120/86 05/06/21 05:30 Pulse Ox 98 05/06/21 05:30 Pain score (VAS): 0 I/O: Intake & Output 05/05/21 05/06/21 05/06/21 23:59 07:59 15:59 Intake Total 650 1300 Output Total 700 300 Balance -50 1000 Post-procedural complaints: pruritis moderate, treatment effective Patient feedback: Patient satisfied with anesthetic care.
--- NOTE | 2021-05-06 11:18 | WPDANLDNPN2 ---
Anes-Prog Note L&D-Neuraxial Date/Time: 05/06/21 11:18 Neuraxial medications: intrathecal PF morphine Opiod-related complaints: pruritis moderate, treatment effective Patient feedback: Patient satisfied with post-operative pain management.
[2021-05-06 13:35] VITALS: BP 135/89; PULSE 73
[2021-05-06] MEDS: RHO(D) IMMUNE GLOBULIN 300 MCG/2 ML SYRINGE IM (17:17)
[2021-05-06 17:25] VITALS: BP 140/94; PULSE 75
[2021-05-06 20:30] VITALS: BP 124/81; PULSE 71; RESP 16; TEMP 36.3; O2SAT 99
[2021-05-07 00:55] VITALS: BP 125/86; PULSE 72
[2021-05-07] MEDS: HYDROcodone/acetaminophen (*CRX) 5-325 MG TABLET 1 TAB PO ×6 (00:58→19:35)
[2021-05-07] MEDS: IBUPROFEN 600 MG TABLET PO ×3 (03:23→15:27)
[2021-05-07] MEDS: LEVOTHYROXINE SODIUM 100 MCG TABLET PO (05:21)
[2021-05-07 05:30] VITALS: BP 130/92; PULSE 67
[2021-05-07 05:39] LABS: Hematocrit 24.1 % (37.0-47.0); Hemoglobin 8.2 g/dL (12.0-15.0); Mean Corpuscular Hemoglobin 30.3 pg (26-34); Mean Corpuscular Volume 88.9 fl (80-100); Mean Platelet Volume 12.8 fl (7.4-10.4); Platelet Count Result 210 k/mm3 (150-375); Red Blood Count 2.71 M/mm3 (4.2-5.4); Red Cell Distribution Width 14.5 % (11.5-14.5); White Blood Count 25.9 K/mm3 (4.5-10.0)
[2021-05-07 06:00] LABS: Alanine Aminotransferase 110 U/L (4-35); Albumin Level 2.4 g/dL (3.5-5.1); Alkaline Phosphatase 230 U/L (38-126); Anion Gap 8 mmol/L (8-16); Aspartate Amino Transferase 73 U/L (14-36); Bilirubin,Total 1.2 mg/dL (0.2-1.3); Blood Urea Nitrogen 26 mg/dL (7-17); Calcium 8.3 mg/dL (8.4-10.2); Carbon Dioxide 22 mmol/L (22-30); Chloride 104 mmol/L (98-107); Estimated CRCL calculation 43 ml/min; Estimated Glomerular Filt Rate 25; Glucose 124 mg/dL (65-110); Potassium 4.4 mmol/L (3.4-5.0); Sodium 134 mmol/L (137-145)
[2021-05-07 07:30] VITALS: BP 138/95; PULSE 74; RESP 16; TEMP 36.6; O2SAT 100
[2021-05-07 07:47] LABS: Band Neutrophils Percent 4 % (0-6); Lymphocytes Absolute Manual 2.59 K/mm3 (1.1-4.5); Monocytes Absolute Manual 0.77 K/mm3 (0.1-0.90); Monocytes Percent Manual 3 % (3-9); Neutrophils Absolute Manual 22.53 K/mm3 (1.7-7.2); Neutrophils Percent Manual 83 % (46-73); Nucleated Red Blood Cells 6 %; Total Cells Counted 100
[2021-05-07 07:48] LABS: Anisocytosis 1+ (NORMAL); Platelet Estimate Adequate (Adequate); Poikilocytosis 1+ (NORMAL)
--- NOTE | 2021-05-07 08:39 | PM.OBPNVD ---
OB - PN: Subj Subjective Date/time seen: 05/07/21 08:39 Interval history: Patient doing well this AM. she is ambulating out of bed. She is tolerating PO. She reports adequate pain control. Her bleeding is normal and she reports normal lochia. She denies fever, chills, N/V. Pt has not had a BM in 7 days. OB - PN: Obj Data Labs CBC & Chem 7: 05/07/21 05:19 05/07/21 05:19 Labs: Laboratory Results - last 24 hr 05/06/21 05/07/21 05/07/21 05:30 05:19 05:19 WBC 25.9 H RBC 2.71 L Hgb 8.2 L Hct 24.1 L MCV 88.9 MCH 30.3 MCHC 34.0 RDW 14.5 Plt Count 210 MPV 12.8 H Immature Gran % (Auto) Not Reportable Neut % (Auto) Not Reportable Lymph % (Auto) Not Reportable [place] % (Auto) Not Reportable Eos % (Auto) Not Reportable Baso % (Auto) Not Reportable Lymph # (Auto) Not Reportable [place] # (Auto) Not Reportable Eos # (Auto) Not Reportable Baso # (Auto) Not Reportable Abs Immat Gran (auto) Not Reportable Absolute Neuts (auto) Not Reportable Absolute Nucleated RBC Not Reportable Total Counted 100 Neutrophils % (Manual) 83 H Band Neutrophils % 4 Lymphocytes % (Manual) 10.0 L Monocytes % (Manual) 3 Nucleated RBC % Not Reportable Abs Neuts (Manual) 22.53 H Abs Lymphs (Manual) 2.59 Abs Monocytes (Manual) 0.77 Nucleated RBCs 6 Platelet Estimate Adequate Poikilocytosis 1+ Anisocytosis 1+ Sodium 134 L Potassium 4.4 Chloride 104 Carbon Dioxide 22 Anion Gap 8 BUN 26 H Creatinine 2.20 H Estim Creat Clear Calc 43 Estimated GFR 25 L Glucose 124 H Calcium 8.3 L Total Bilirubin 1.2 AST 73 H ALT 110 H Alkaline Phosphatase 230 H Total Protein 5.0 L Albumin 2.4 L Blood Type A Negative Antibody Screen TNP Screen Negative Baby's Blood Type O pos Baby's GLADYS Positive Doses of RhIg Required 1 OB - PN A/P Plan day: 2 Plan: routine care Comments: Pt had a few mildly elevated BP, denies any PreE symptoms will continue to monitor BP repeat CBC and CMP in AM H/H stable Pt has not been able to have a BM, will add mirilax continue routine care Time Spent With Patient Time: Total time spent is greater than 50% in coordination of care (as documented) at patient's floor/unit and/or counseling patient: Time with patient: less than 15 minutes Exam Const: General: cooperative and comfortable GI: Inspection: abdominal wall ecchymosis (large ecchymosis surrounding incision ) and incision (pfannenstiel)
[2021-05-07] MEDS: DOCUSATE SODIUM 100 MG CAPSULE PO ×2 (09:30→16:36)
[2021-05-07] MEDS: POLYSACCHARIDE IRON COMPLEX 150 MG CAPSULE PO ×2 (09:30→16:37)
[2021-05-07] MEDS: FAMOTIDINE 20 MG TABLET PO (09:30)
[2021-05-07] MEDS: polyethylene glycoL 3350 17 GM POWD.PACK PO (10:14)
[2021-05-07 12:40] VITALS: BP 132/89; PULSE 73; RESP 16; TEMP 37.1
[2021-05-07 15:30] VITALS: BP 149/97; PULSE 75; RESP 16; TEMP 36.8
[2021-05-07] MEDS: BISACODYL 10 MG SUPPOSITORY RECTAL (16:37)
[2021-05-07 19:35] VITALS: BP 146/103; PULSE 68; RESP 16; TEMP 36.4; O2SAT 99
[2021-05-08] VITALS (8 sets, daily range): BP systolic 118–153; BP diastolic 84–98; PULSE 64–80; RESP 16–18; TEMP 36.7–36.8; O2SAT 95–99
[2021-05-08] MEDS: HYDROcodone/acetaminophen (*CRX) 5-325 MG TABLET 1 TAB PO ×5 (00:05→21:10)
[2021-05-08] MEDS: IBUPROFEN 600 MG TABLET PO ×4 (00:05→21:09)
[2021-05-08] MEDS: polyethylene glycoL 3350 17 GM POWD.PACK PO (04:48)
[2021-05-08] MEDS: LEVOTHYROXINE SODIUM 100 MCG TABLET PO (04:48)
[2021-05-08 05:17] LABS: Basophils Absolute Auto 0.1 K/mm3 (0.0-0.1); Basophils Percent Auto 0.3 % (0.2-1.2); Eosinophils Absolute Auto 0.1 K/mm3 (0-0.3); Eosinophils Percent Auto 0.3 % (0-4.4); Hematocrit 26.4 % (37.0-47.0); Hemoglobin 8.7 g/dL (12.0-15.0); Immature Granulocyte Absolute 1.08 K/mm3 (0.00-0.031); Immature Granulocyte Percent A 4.7 % (0-0.5); Lymphocytes Absolute Auto 4.15 K/mm3 (0.9-3.2); Lymphocytes Percent Auto 18.1 % (18.3-44.2); Mean Corpuscular Hemoglobin 30.4 pg (26-34); Mean Corpuscular Volume 92.3 fl (80-100); Mean Platelet Volume 12.1 fl (7.4-10.4); Monocytes Absolute Auto 2.4 K/mm3 (0.1-0.6); Monocytes Percent Auto 10.4 % (2.6-8.5); Neutrophils Absolute Auto 15.1 K/mm3 (1.3-6.7); Neutrophils Percent Auto 66.2 % (45.5-73.1); Nucleated Red Blood Cells Absolute Auto 0.5 K/mm3 (0.0-0.012); Nucleated Red Blood Cells Perc 2.2 % (0.0-0.2); Platelet Count Result 251 k/mm3 (150-375); Red Blood Count 2.86 M/mm3 (4.2-5.4); Red Cell Distribution Width 14.9 % (11.5-14.5); White Blood Count 22.9 K/mm3 (4.5-10.0)
[2021-05-08 05:37] LABS: Alanine Aminotransferase 102 U/L (4-35); Albumin Level 2.7 g/dL (3.5-5.1); Alkaline Phosphatase 252 U/L (38-126); Anion Gap 4 mmol/L (8-16); Aspartate Amino Transferase 73 U/L (14-36); Blood Urea Nitrogen 24 mg/dL (7-17); Calcium 8.4 mg/dL (8.4-10.2); Carbon Dioxide 27 mmol/L (22-30); Chloride 104 mmol/L (98-107); Estimated CRCL calculation 57 ml/min; Estimated Glomerular Filt Rate 37; Glucose 102 mg/dL (65-110); Potassium 4.8 mmol/L (3.4-5.0); Sodium 135 mmol/L (137-145)
--- NOTE | 2021-05-08 08:00 | PC.NURSE ---
PT introductions made and plan of care discussed per post op c section, pain management, breast feeding, bottle feeding, daily care activities. PT received instructions per one to one discussion, mom baby care guide and demonstrations. PT and spouse both recipients of such instructions and no barriers to learning identified at this time. PT verbalized understanding of such care.
--- NOTE | 2021-05-08 08:08 | PM.OBPNVD ---
OB - PN: Subj Subjective Date/time seen: 05/08/21 08:08 Narrative: Pain OK. Tolerating diet. No BM yet. OB - PN: Obj Data Labs CBC & Chem 7: 05/08/21 05:05 05/08/21 05:05 Labs: Laboratory Results - last 24 hr 05/08/21 05/08/21 05:05 05:05 WBC 22.9 H RBC 2.86 L Hgb 8.7 L Hct 26.4 L MCV 92.3 MCH 30.4 MCHC 33.0 RDW 14.9 H Plt Count 251 MPV 12.1 H Immature Gran % (Auto) 4.7 H Neut % (Auto) 66.2 Lymph % (Auto) 18.1 L [place] % (Auto) 10.4 H Eos % (Auto) 0.3 Baso % (Auto) 0.3 Lymph # (Auto) 4.15 H [place] # (Auto) 2.4 H Eos # (Auto) 0.1 Baso # (Auto) 0.1 Abs Immat Gran (auto) 1.08 H Absolute Neuts (auto) 15.1 H Absolute Nucleated RBC 0.5 H Nucleated RBC % 2.2 H Sodium 135 L Potassium 4.8 Chloride 104 Carbon Dioxide 27 Anion Gap 4 L BUN 24 H Creatinine 1.60 H Estim Creat Clear Calc 57 Estimated GFR 37 L Glucose 102 Calcium 8.4 Total Bilirubin 1.0 AST 73 H ALT 102 H Alkaline Phosphatase 252 H Total Protein 5.0 L Albumin 2.7 L OB - PN A/P Plan Comments: A: POD#3, doing well. Severe preeclampsia resolving. BP stable with no meds. Labs all improving. P: Routine care. Try Milk of Magnsesia and Dulcolax supp. Keep overnight and hope for discharge tomorrow. Exam Narrative: AVSS I/O OK ABD soft, nontender, fundus firm. Incision c/d/i. Ecchymosis noted to be stable. EXT nontender, 2+ pitting edema to the knees.
--- NOTE | 2021-05-08 08:15 | PM.DS ---
DS: Admitting Diagnosis Discharge Date 05/09/21 Admitting Diagnosis IUP at 35 weeks Preeclampsia with severe features DS: Discharge Diagnosis Discharge Diagnosis (1) Preeclampsia: Code(s): O14.90 - Unspecified pre-eclampsia, unspecified trimester Status: Acute (2) delivery delivered: Code(s): O82 - Encounter for delivery without indication Status: Acute DS: Summary Hospital Course Hospital Course: Admitted to hospital for hypertensive workup. Diagnosed with severe preeclampsia. Induction of labor started, but she subsequently underwent delivery. DS: Data Data Completed and Pending Pending studies at discharge: Pending at discharge 05/04/21 10:42 Surgical [PTH] Routine Labs on day of discharge: Labs from last 24 hours 05/08/21 05/08/21 05:05 05:05 WBC 22.9 H RBC 2.86 L Hgb 8.7 L Hct 26.4 L MCV 92.3 MCH 30.4 MCHC 33.0 RDW 14.9 H Plt Count 251 MPV 12.1 H Immature Gran % (Auto) 4.7 H Neut % (Auto) 66.2 Lymph % (Auto) 18.1 L [place] % (Auto) 10.4 H Eos % (Auto) 0.3 Baso % (Auto) 0.3 Lymph # (Auto) 4.15 H [place] # (Auto) 2.4 H Eos # (Auto) 0.1 Baso # (Auto) 0.1 Abs Immat Gran (auto) 1.08 H Absolute Neuts (auto) 15.1 H Absolute Nucleated RBC 0.5 H Nucleated RBC % 2.2 H Sodium 135 L Potassium 4.8 Chloride 104 Carbon Dioxide 27 Anion Gap 4 L BUN 24 H Creatinine 1.60 H Estim Creat Clear Calc 57 Estimated GFR 37 L Glucose 102 Calcium 8.4 Total Bilirubin 1.0 AST 73 H ALT 102 H Alkaline Phosphatase 252 H Total Protein 5.0 L Albumin 2.7 L Discharge Plan Discharge Attending physician on discharge: Hernando Fuentes Consulting providers: Maximo Syed Discharging Clinician: Hernando Fuentes Anticipated Discharge Date/Time: 05/09/21 11:00 Patient Disposition: Home, Self-Care Activity: may shower, may drive after 2 weeks and pelvic rest Diet: regular Wound Care Instructions: incision open to air Discharge Instructions: Education: Mom and Baby Guide Given to: Mother Follow-Up: Call your delivering provider's office for an appointment to be seen in: 1 Week Mom and baby should come to the [facility] for the follow-up appointment. Appointment Date/Time: Monday May 10, 2021 at 11:00 am What to expect at your follow-up visit: Blood Pressure Check Call [phone] if you are unable to keep your appointment time. BREAST CARE: * Wear a snug supportive bra. * For engorgement discomfort: Breast Feeding: * Apply warm moist washcloths * Express milk as needed to relieve engorgement * Wear loose clothing Bottle Feeding: * May apply ice packs * For sore nipples: * Identify correct latch-on * Apply warm moist washcloths before and after nursing * Air dry nipples after nursing * May apply Lansinoh cream to nipples ABDOMINAL INCISION: (if applicable) * Allow incision to air dry * Do NOT use lotions for powders on your incision * When showering, allow soap and water to run over the incision, but do not wash incision PERINEAL CARE: * Until bleeding stops, use your echo bottle after urinating * Change your pad frequently throughout the day * No tub baths until seen by your physician - You may shower ACTIVITY: * Rest as much as possible. * Do not exercise or lift anything heavier than your baby (such as laundry or other children.) * Avoid stairs or driving as much as possible. * Do not put anything into the vagina. No douching, tampons, or sexual activity until seen by physician. NOTIFY PHYSICIAN IF YOU HAVE ANY QUESTIONS OR IF ANY OF THE FOLLOWING SYMPTOMS OCCUR: * If your incision becomes red, swollen, or more painful than what you have experienced in the hospital. * If your vaginal bleeding becomes fou
[2021-05-08] MEDS: MULTIVIT/MIN/PREN/FOL AC/IRON TABLET 1 TAB PO (08:52)
[2021-05-08] MEDS: SIMETHICONE 80 MG TAB.CHEW PO ×2 (08:54→14:55)
[2021-05-08] MEDS: DOCUSATE SODIUM 100 MG CAPSULE PO ×2 (08:54→14:55)
[2021-05-08] MEDS: POLYSACCHARIDE IRON COMPLEX 150 MG CAPSULE PO ×2 (08:55→14:57)
[2021-05-08] MEDS: MAGNESIUM HYDROXIDE SUSP 30 ML UDC (09:00)
[2021-05-08] MEDS: MAGNESIUM HYDROXIDE SUSP 30 ML UDC PO (10:00)
[2021-05-08 10:55] LABS: Rapid Plasma Reagin Non-Reactive (NonReactive)
--- NOTE | 2021-05-08 14:55 | PC.NURSE ---
0740 - Introductions were made. Dr. Amado is at bedside with RN. Discussed plan of care. Mom is demonstrating understanding of pumping. Breast pump provided prior to dayshift due to ineffective feedings of late infant. Instructions given on breast pump care and usage, pumping schedule, nipple care, and collection and storage of breast milk reviewing the mom and baby guide. Dad is bottle feeding . Encouraged [id number], breast massage and hand expression (taught and demonstrated understanding with no colostrum expressed) to stimulate supply. Pumping will be recorded on the feeding sheet. Assessed patient for correct flange size, placement and draw. Patient verbalizes and demonstrates understanding of instructions. RN reviewed infant feeding cues, frequencies, duration of feedings, feeding elimination flow sheet, and signs of adequate intake. Mom attempted to breastfeed independently and was unable to latch correctly. Dr. Fuentes is now at bedside. After plan of care discussed, then nipple care reviewed. Instructed mother to call out for RN assistance when she visualizes feeding cues and places baby skin -to-skin. Parents voiced understanding feedings to be initiated three hours from start of last feeding or if feeding cues are noted before. Reported to primary RN.
--- NOTE | 2021-05-08 15:03 | PC.NURSE ---
1030 - Dad demonstrated stimulation techniques to wake for feeding by unwrapping/ undressing, then placing skin-to skin on mom's chest. Baby is sleepy. Mom initiated pumping while dad supplemented with a bottle. Instructed mother to call out for RN assistance if she is unable to latch infant for feeding or she has discomfort with nursing. Instructed feeding should be initiated three hours from start of last feeding or if feeding cues are noted before. Mother voiced understanding of information shared.
--- NOTE | 2021-05-08 15:08 | PC.NURSE ---
1410 - Consulted with patient, reviewed infant feeding cues,positioning/alignment, holding breast and asymmetrical latch on. Infant was able to latch correctly at times, then pull back and latch shallow to the nipple. nursed eagerly, with steady draws and no swallowing visualized. Reviewed signs of a correct latch, effective nursing and suck swallow ratio. was able to maintain latch without discomfort to mother for short burst of time, then detached for shallow latching. Nipple care reviewed. Many attempts to left and right breast. Improvement has been seen. Infant shows 140 degree gape, at times raises tongue and gets very eager and starts closing his mouth before effective latch is achieved. Mom voices understanding of what an effective/ineffective latch feels/looks like. Instructed mother to call out for RN assistance if she is unable to latch for feeding or she has discomfort with nursing. Mother has demonstrated feeding is to be initiated three hours from start of last feeding or if feeding cues are noted before. Mom demonstrates understanding of supplementing with the bottle and plans to pump. Mother voiced understanding of information shared and will call for assistance when needed. Reported to primary RN.
[2021-05-09 04:40] VITALS: BP 136/98; PULSE 68
[2021-05-09] MEDS: IBUPROFEN 600 MG TABLET PO (04:45)
[2021-05-09] MEDS: FAMOTIDINE 20 MG TABLET PO (04:45)
[2021-05-09] MEDS: HYDROcodone/acetaminophen (*CRX) 5-325 MG TABLET 1 TAB PO (04:45)
[2021-05-09] MEDS: LEVOTHYROXINE SODIUM 100 MCG TABLET PO (04:47)
[2021-05-09 05:17] LABS: Hematocrit 24.7 % (37.0-47.0); Hemoglobin 8.1 g/dL (12.0-15.0); Mean Corpuscular HGB Conc 32.8 g/dl (32-36); Mean Corpuscular Hemoglobin 30.2 pg (26-34); Mean Corpuscular Volume 92.2 fl (80-100); Mean Platelet Volume 11.8 fl (7.4-10.4); Platelet Count Result 280 k/mm3 (150-375); Red Blood Count 2.68 M/mm3 (4.2-5.4); Red Cell Distribution Width 15.3 % (11.5-14.5)
[2021-05-09 05:26] LABS: Alanine Aminotransferase 75 U/L (4-35); Albumin Level 2.3 g/dL (3.5-5.1); Alkaline Phosphatase 196 U/L (38-126); Anion Gap 1 mmol/L (8-16); Aspartate Amino Transferase 53 U/L (14-36); Bilirubin,Total 0.8 mg/dL (0.2-1.3); Blood Urea Nitrogen 22 mg/dL (7-17); Calcium 7.7 mg/dL (8.4-10.2); Carbon Dioxide 27 mmol/L (22-30); Chloride 105 mmol/L (98-107); Estimated CRCL calculation 65 ml/min; Estimated Glomerular Filt Rate 43; Glucose 79 mg/dL (65-110); Potassium 4.3 mmol/L (3.4-5.0); Sodium 133 mmol/L (137-145)
[2021-05-09 08:00] VITALS: BP 157/105; PULSE 69; RESP 18; TEMP 36.5
[2021-05-09] MEDS: SIMETHICONE 80 MG TAB.CHEW PO (08:15)
[2021-05-09] MEDS: POLYSACCHARIDE IRON COMPLEX 150 MG CAPSULE PO (08:16)
[2021-05-09] MEDS: DOCUSATE SODIUM 100 MG CAPSULE PO (08:17)
--- NOTE | 2021-05-09 09:04 | PM.OBPNVD ---
OB - PN: Subj Subjective Date/time seen: 05/09/21 09:04 Narrative: Pain OK. Tolerating diet. Would like to go home. OB - PN: Obj Data Labs CBC & Chem 7: 05/09/21 04:39 05/09/21 04:39 Labs: Laboratory Results - last 24 hr 05/05/21 05/09/21 05/09/21 05:09 04:39 04:39 WBC 17.0 H RBC 2.68 L Hgb 8.1 L Hct 24.7 L MCV 92.2 MCH 30.2 MCHC 32.8 RDW 15.3 H Plt Count 280 MPV 11.8 H Sodium 133 L Potassium 4.3 Chloride 105 Carbon Dioxide 27 Anion Gap 1 L BUN 22 H Creatinine 1.40 H Estim Creat Clear Calc 65 Estimated GFR 43 L Glucose 79 Calcium 7.7 L Total Bilirubin 0.8 AST 53 H ALT 75 H Alkaline Phosphatase 196 H Total Protein 5.0 L Albumin 2.3 L RPR Non-reactive OB - PN A/P Plan Comments: A: POD#4, doing well. BP a little labile, but labs continue to improve. P: Home to f/u bp check tomorrow, then bp and labs in a week. Exam Narrative: AVSS ABD soft, nontender, fundus firm. Incision c/d/i. Ecchymosis stable. EXT nontender
--- NOTE | 2021-05-09 09:51 | PC.NURSE ---
[phone] Mother led the conversation with regards to her experience feeding her baby, with dad interacting with encouragement. Reminded parents to use good handwashing to prevent infection. has had appropriate feedings in the past 24 hours and meets the outcomes for weight, output and jaundice. Mother states she feels confident to continue training to effectively latch with /pumping/supplementing her infant at home. Reviewed production of human milk, transition of milk, signs of adequate intake and engorgement prevention/relief and when to call the infant care provider using the mom and baby guide as a useful reference. Reviewed medications mother is taking with information provided by [facility], community resources and outpatient services as listed in the mom and baby guide/[facility] website. Parents have no other questions at this time. Mother voiced understanding to call for assistance as needed for latching , unable to latch or discomfort with before she goes home. Reported to primary RN.
--- NOTE | 2021-05-09 10:00 | PC.NURSE ---
Patient viewed the discharge video Mother & Baby Care, The First Two Weeks . Patient was given the opportunity and encouraged to ask questions. Patient verbalized understanding of information shared and has been given the mother/baby guide for home reference.
--- NOTE | 2021-05-09 11:41 | PC.NURSE ---
1010 - Reviewed with patient, reviewed infant feeding cues, frequencies, duration of feedings, feeding elimination flow sheet, and signs of adequate intake. Demonstrated stimulation techniques to wake for feeding. Assisted with to breast on the left in cross cradle position. Mother demonstrate positioning/alignment, holding breast and asymmetrical latch on with minor reinforcement. 35 wk infant was able to latch correctly at first. Infant nursed eagerly, with steady draws and no swallowing visualized, then pauses, relaxes and suck is released and lets the nipple sit in the mouth. Assisted mom with baby to latch to the right breast in cross cradle position. Infant nursed eagerly, with steady draws and no swallowing visualized, then pauses, relaxes and suck is released and infant lets the nipple sit in the mouth. Reviewed signs of a correct latch, effective nursing and suck swallow ratio. Infant was able to maintain latch without discomfort to mother for short burst of time, then pauses, relaxes and suck is released and infant lets the nipple sit in the mouth. Nipple care reviewed. Reminded parents to use good handwashing to prevent infection. has had appropriate feedings in the past 24 hours and meets the outcomes for weight, output and jaundice. Mother states she feels confident to continue practicing effective /pumping/supplementing her at home. Reviewed production of human milk, transition of milk, signs of adequate intake and engorgement prevention/relief and when to call the care provider using the mom and baby guide as a resource. Reviewed community resources and outpatient services as listed in the mom and baby guide/[facility] website. Reviewed feeding should be initiated three hours from start of last feeding or if feeding cues are noted before. Parents voiced understanding of information shared. Reported to primary RN. Instructed
[2021-05-10 11:35] VITALS: BP 142/91; PULSE 72; RESP 20; TEMP 37.3; O2SAT 100
== END 2021-05-09 11:53 | disposition home or self-care (01) | DRG 788 ==
LOC: ANHOBOP 16:00 → ANHOBPP 16:01 → ANHOBOP 18:18 → ANHOBPP 18:18 → ANHLDR 05-05 03:35 → ANHOB2 05-05 14:15
PROVIDERS: Admitting Provider Student in an Organized Health Care Education/Training Program; PCP Internal Medicine; Visit Provider Obstetrics & Gynecology
PROC: 10D00Z1 Extraction of Products of Conception, Low, Open Approach (ICD-10-PCS; CPT 59514; principal; 2021-05-05 10:30)
DX: O14.14 Severe pre-eclampsia complicating childbirth (principal); O77.0 Labor and delivery complicated by meconium in amniotic fluid; O76 Abnormality in fetal heart rate and rhythm complicating labor and delivery; O99.284 Endocrine, nutritional and metabolic diseases complicating childbirth; E03.9 Hypothyroidism, unspecified; O99.214 Obesity complicating childbirth; E66.9 Obesity, unspecified; O69.81X0 Labor and delivery complicated by cord around neck, without compression, not applicable or unspecified; O71.7 Obstetric hematoma of pelvis; Z3A.35 35 weeks gestation of pregnancy; Z37.0 Single live birth
CPT/HCPCS: 36415; 59025; 80053; 81001; 82570; 84156; 84550; 85025; 85027; 85461; 86592; 86703; 86850; 86880; 86900; 86901; 88307; 90384; A9270; C9113; G0432; J0131; J0290; J0702; J1100; J1200; J1885; J2274; J2405; J2590; J2790; J7120

== ENCOUNTER 2022-06-06 16:49 | Outpatient (RCR) | payer OTHER, SELFPAY ==
[2022-06-07] MEDS: RHO(D) IMMUNE GLOBULIN 300 MCG/2 ML SYRINGE IM (11:56)
== END 2022-09-04 23:59 | disposition home or self-care (01) ==
LOC: ANHLAB 16:49
PROVIDERS: PCP Obstetrics & Gynecology; Visit Provider Obstetrics & Gynecology
DX: Z29.13 Encounter for prophylactic Rho(D) immune globulin (principal); O36.0190 Maternal care for anti-D [Rh] antibodies, unspecified trimester, not applicable or unspecified; Z3A.00 Weeks of gestation of pregnancy not specified
CPT/HCPCS: 36415; 85461; 86850; 86900; 86901; 90384; 96372; J2790

== ENCOUNTER 2023-02-11 17:15 | Outpatient (CLI) | payer OTHER, SELFPAY ==
[2023-02-11 17:46] VITALS: BP 124/79; PULSE 79
[2023-02-11 17:57] LABS: Basophils Absolute Auto 0.1 K/mm3 (0.0-0.1); Basophils Percent Auto 0.8 % (0.2-1.2); Eosinophils Absolute Auto 0.1 K/mm3 (0-0.3); Hematocrit 37.3 % (37.0-47.0); Hemoglobin 12.4 g/dL (12.0-15.0); Immature Granulocyte Absolute 0.08 K/mm3 (0.00-0.031); Immature Granulocyte Percent A 0.8 % (0-0.5); Lymphocytes Absolute Auto 2.89 K/mm3 (0.9-3.2); Lymphocytes Percent Auto 27.5 % (18.3-44.2); Mean Corpuscular HGB Conc 33.2 g/dl (32-36); Mean Corpuscular Hemoglobin 30.6 pg (26-34); Mean Corpuscular Volume 92.1 fl (80-100); Mean Platelet Volume 12.1 fl (7.4-10.4); Monocytes Absolute Auto 0.7 K/mm3 (0.1-0.6); Monocytes Percent Auto 6.5 % (2.6-8.5); Neutrophils Absolute Auto 6.7 K/mm3 (1.3-6.7); Neutrophils Percent Auto 63.4 % (45.5-73.1); Platelet Count Result 251 k/mm3 (150-375); Red Blood Count 4.05 M/mm3 (4.2-5.4); Red Cell Distribution Width 13.1 % (11.5-14.5); White Blood Count 10.5 K/mm3 (4.5-10.0)
[2023-02-11 18:01] VITALS: BP 120/82; PULSE 79
[2023-02-11 18:11] LABS: Alanine Aminotransferase 57 U/L (6-35); Albumin Level 3.5 g/dL (3.5-5.1); Alkaline Phosphatase 251 U/L (38-126); Anion Gap 6 mmol/L (8-16); Aspartate Amino Transferase 50 U/L (14-36); Bilirubin,Total 0.5 mg/dL (0.2-1.3); Blood Urea Nitrogen 17 mg/dL (7-17); Calcium 9.3 mg/dL (8.4-10.2); Carbon Dioxide 21 mmol/L (22-30); Chloride 104 mmol/L (98-107); Estimated Glomerular Filt Rate 56; Glucose 109 mg/dL (65-110); Potassium 3.7 mmol/L (3.4-5.0); Sodium 131 mmol/L (137-145); Uric Acid 8.5 mg/dL (2.5-7.5)
[2023-02-11 18:16] VITALS: BP 128/87; PULSE 81
--- NOTE | 2023-02-11 18:42 | PC.NURSE ---
Dr. Fuentes notified of pt status, instructed to give pt dose of betamethasone, send urine, and send pt home. Pt does not have to wait for urine to result before discharge.
[2023-02-11] MEDS: BETAMETHASONE SOD PHOS/ACETATE 30 MG/5 ML VIAL 12 MG IM (19:01)
[2023-02-11 19:19] LABS: Appearance Urine Clear (Clear); Bilirubin Urine Negative (Negative); Blood Urine Negative (Negative); Color Urine Yellow (Yellow); Glucose Urine UA Negative (Negative); Ketones Urine Negative (Negative); Leukocyte Esterase Ur Negative LEU/UL (NEGATIVE); Nitrate Urine Negative (Negative); Protein Urine Negative (Negative); Specific Grav Ur 1.011 (1.001-1.035); Urobilinogen Urine 0.2 mg/dL (<2.0); pH Urine 6.5 (5.0-9.0)
[2023-02-11 19:36] LABS: Add Urine Microscopic? NO
[2023-02-11 23:16] LABS: Creatinine Urine 67.1 mg/dL; Total Protein Urine Random 10 mg/dL; Ur Ttl Prot Creatinine Ratio 0.15 mg/mg (0-0.20)
[2023-02-12] MEDS: BETAMETHASONE SOD PHOS/ACETATE 30 MG/5 ML VIAL 12 MG IM (18:44)
--- NOTE | 2023-02-12 18:58 | PC.NURSE ---
Addendum entered by Robert Madrid RN 02/13/23 07:30: Pt request for [facility] labs to be redrawn. Original Note: Patient returns for betametasome injection tonight. Pt states she left message at MD office today and is concerned about liver enzymes. Pt requesting for NST to be redrawn.
--- NOTE | 2023-02-12 19:00 | PC.NURSE ---
Pt returned for Betamethasone injection. After Betamethasone Pt stated she had concerns over her liver enzymes being elevated. Dr. Steffanie Tomlinson was notifed and [facility] labs ordered. No UA necessary due to pt having UA yesterday.
[2023-02-12 19:21] LABS: Basophils Absolute Auto 0.1 K/mm3 (0.0-0.1); Basophils Percent Auto 0.4 % (0.2-1.2); Eosinophils Percent Auto 0.2 % (0-4.4); Hemoglobin 12.3 g/dL (12.0-15.0); Immature Granulocyte Absolute 0.16 K/mm3 (0.00-0.031); Immature Granulocyte Percent A 1.4 % (0-0.5); Lymphocytes Absolute Auto 2.72 K/mm3 (0.9-3.2); Mean Corpuscular HGB Conc 33.2 g/dl (32-36); Mean Corpuscular Hemoglobin 30.7 pg (26-34); Mean Corpuscular Volume 92.3 fl (80-100); Mean Platelet Volume 12.3 fl (7.4-10.4); Monocytes Absolute Auto 0.7 K/mm3 (0.1-0.6); Monocytes Percent Auto 5.8 % (2.6-8.5); Neutrophils Absolute Auto 8.2 K/mm3 (1.3-6.7); Neutrophils Percent Auto 69.2 % (45.5-73.1); Platelet Count Result 259 k/mm3 (150-375); Red Blood Count 4.01 M/mm3 (4.2-5.4); Red Cell Distribution Width 13.1 % (11.5-14.5); White Blood Count 11.8 K/mm3 (4.5-10.0)
[2023-02-12 19:36] LABS: Alanine Aminotransferase 94 U/L (6-35); Albumin Level 3.5 g/dL (3.5-5.1); Alkaline Phosphatase 263 U/L (38-126); Anion Gap 7 mmol/L (8-16); Aspartate Amino Transferase 82 U/L (14-36); Bilirubin,Total 0.5 mg/dL (0.2-1.3); Blood Urea Nitrogen 20 mg/dL (7-17); Calcium 8.9 mg/dL (8.4-10.2); Carbon Dioxide 18 mmol/L (22-30); Chloride 103 mmol/L (98-107); Estimated Glomerular Filt Rate 51; Glucose 138 mg/dL (65-110); Potassium 3.9 mmol/L (3.4-5.0); Sodium 128 mmol/L (137-145); Uric Acid 8.9 mg/dL (2.5-7.5)
== END 2023-02-11 19:10 | disposition home or self-care (01) ==
LOC: ANHOBOP 17:20 → ANHLDR 17:25
PROVIDERS: PCP Internal Medicine; Visit Provider Obstetrics & Gynecology
DX: O13.9 Gestational [pregnancy-induced] hypertension without significant proteinuria, unspecified trimester (principal); Z3A.00 Weeks of gestation of pregnancy not specified
CPT/HCPCS: 36415; 59025; 80053; 81003; 82570; 84156; 84550; 85025; 87086; 96372; 99199; J0702

== ENCOUNTER 2023-02-12 18:33 | Outpatient (RCR) | payer OTHER, SELFPAY ==
[2022-12-20] MEDS: RHO(D) IMMUNE GLOBULIN 300 MCG/2 ML SYRINGE IM (16:02)
--- NOTE | 2023-02-13 08:39 | PC.NURSE ---
Documentation on this record 02/12/23. is noted on V # [id number]. This record is a [facility] record from previous visit.
== END 2023-02-13 08:44 | disposition home or self-care (01) ==
LOC: ANHLAB 18:33
PROVIDERS: PCP Internal Medicine; Visit Provider Obstetrics & Gynecology
DX: Z29.13 Encounter for prophylactic Rho(D) immune globulin (principal); O36.0190 Maternal care for anti-D [Rh] antibodies, unspecified trimester, not applicable or unspecified; Z3A.00 Weeks of gestation of pregnancy not specified
CPT/HCPCS: 36415; 85461; 86850; 86900; 86901; 90384; 96372; J2790

== ENCOUNTER 2023-02-13 08:44 | Inpatient (IN) | payer OTHER, SELFPAY ==
[2023-02-13] VITALS (48 sets, daily range): BP systolic 105–124; BP diastolic 55–77; PULSE 56–97; RESP 14–18; TEMP 36.3–36.6; O2SAT 95–100; BMI 34.8
--- NOTE | 2023-02-13 08:44 | LDADM ---
This patient, Nita Valencia, was admitted to Labor/Delivery/Recovery 101 on 02/13/23 at 08:44. Plans for labor, pain management and were discussed with patient. Patient/family oriented to hospital policies and general routines including ID bracelet, bed and alarms, visiting hours, pain management, procedures, bathroom and other care routines, personal items, smoking policy, room service/diet and guest tray routines, security routines, and visiting hours. Patient/Family are encouraged to report perceived risks to care and to ask questions if they do not understand what they are told or what they should do. See OBIX for further documentation.
--- NOTE | 2023-02-13 09:34 | P.PNAN_ITS ---
Anes - Initial Pre Proc Eval Procedure: Repeat C/S Date/Time: 02/13/23 09:34 Surgeon: Hernando Fuentes MD Pre Op Diagnosis: Previous c/s Pre Op Diagnosis: Labor Patient Data Age: 37 Gender: F Height: Weight: Allergies Allergy/AdvReac Type Severity Reaction Status Date / Time No Known Allergies Allergy Unverified 02/22/20 12:00 Home Medications Medication Instructions Recorded Confirmed Type levothyroxine 100 mcg tablet 88 mcg PO DAILY 02/19/20 02/11/23 History vits,calcium 21-iron fum 1 tablet PO DAILY 02/19/20 02/11/23 History 14 mg iron-folic acid 400 mcg tablet ( Complete) famotidine 20 mg tablet (Pepcid) 20 mg PO BID 05/04/21 02/11/23 History Patient hx anesthesia problems: none Family hx anesthesia problems: none Results Review: All pre-operative results and documents have been reviewed as part of the pre- operative evaluation. [facility] Past Medical History Medical History (Updated 02/13/23 @ 09:56 by Maximo Syed DO) Elevated liver enzymes Hypothyroidism Obesity Surgical History Surgical History History of appendectomy History of removal of cyst Family History Family History (Updated 02/11/23 @ 17:42 by oRel De Jesus RN) Father Hypertension Social History Social History Smoking status: Never smoker Second hand tobacco smoke exposure: Yes Substance use: never Spiritual care concerns: No Anes - Eval Final PreProcedure Day of Procedure 02/13/23 09:34 Patient weight: obese Heart: regular rate and rhythm Lungs: clear to auscultation and normal air movement Airway: Mallampati scale class II Neurological: alert and oriented Last oral intake: >/= 8 hours ASA classification: III Emergent: no Anesthetic plan: proceed Anesthesia type and monitoring: regional spinal and standard monitoring Results Review: All pre-operative results and documents have been reviewed as part of the pre- operative evaluation. Informed Consent: The patient's anesthetic plan and its attendant risks and benefits were discussed with the patient/family/POA. Questions were solicited and answers provided to the satisfaction of the patient/family/POA.
[2023-02-13 10:09] LABS: Basophils Absolute Auto 0.1 K/mm3 (0.0-0.1); Basophils Percent Auto 0.4 % (0.2-1.2); Eosinophils Percent Auto 0.1 % (0-4.4); Hemoglobin 13.1 g/dL (12.0-15.0); Immature Granulocyte Absolute 0.55 K/mm3 (0.00-0.031); Immature Granulocyte Percent A 3.7 % (0-0.5); Lymphocytes Absolute Auto 2.37 K/mm3 (0.9-3.2); Mean Corpuscular HGB Conc 33.6 g/dl (32-36); Mean Corpuscular Hemoglobin 30.8 pg (26-34); Mean Corpuscular Volume 91.8 fl (80-100); Mean Platelet Volume 12.2 fl (7.4-10.4); Monocytes Absolute Auto 0.8 K/mm3 (0.1-0.6); Monocytes Percent Auto 5.5 % (2.6-8.5); Neutrophils Percent Auto 74.3 % (45.5-73.1); Platelet Count Result 265 k/mm3 (150-375); Red Blood Count 4.25 M/mm3 (4.2-5.4); Red Cell Distribution Width 13.2 % (11.5-14.5); White Blood Count 14.8 K/mm3 (4.5-10.0)
[2023-02-13] MEDS: LACTATED RINGERS 1,000 ML 125 ML IV CONT ×2 (10:15→12:48)
[2023-02-13 10:25] LABS: Alanine Aminotransferase 184 U/L (6-35); Albumin Level 3.8 g/dL (3.5-5.1); Alkaline Phosphatase 287 U/L (38-126); Anion Gap 10 mmol/L (8-16); Aspartate Amino Transferase 158 U/L (14-36); Bilirubin,Total 0.5 mg/dL (0.2-1.3); Blood Urea Nitrogen 16 mg/dL (7-17); Calcium 9.7 mg/dL (8.4-10.2); Carbon Dioxide 17 mmol/L (22-30); Chloride 105 mmol/L (98-107); Estimated Glomerular Filt Rate 56; Glucose 106 mg/dL (65-110); Sodium 132 mmol/L (137-145)
[2023-02-13 10:29] LABS: Uric Acid 9.1 mg/dL (2.5-7.5)
--- NOTE | 2023-02-13 10:47 | PM.IMHP ---
H&P: HPI History of Present Illness Date/Time: 02/13/23 10:47 Chief Complaint: Contractions Narrative: 37 y/o at 36 2/7 weeks gestation here with contractions. GBS pos. Would like permanent contraception with bilateral salpingectomy. History of severe preeclampsia in first . We have noted increased transaminases and uric acid levels, but bp has been ok, and no significant proteinuria. No headache or visual field change, no RUQ or epigastric pain. Good movement. No edema. Review of Systems Review of Systems: All systems reviewed & are unremarkable except as noted in HPI and below PMFSH Past Medical History Medical History (Updated 02/13/23 @ 10:52 by Hernando Fuentes MD) Elevated liver enzymes Hypothyroidism Obesity Surgical History Surgical History (Updated 02/13/23 @ 10:51 by Hernando Fuentes MD) History of appendectomy History of delivery History of removal of cyst Family History Family History Father Hypertension Social History Social History Smoking status: Never smoker Second hand tobacco smoke exposure: No Substance use: never Lack of Transportation: No Lack of Food: Never True Current Housing: I Have Housing Concerned About Future Housing: No Difficulty Paying Gas/Electric Bills: No Difficulty Paying for Meds: No Currently Unemployed: YES Education: Bachelor's Degree Difficulty w/ Childcare or Family Care: No Spiritual care concerns: No Meds Home Medications and Allergies Home Medications Medication Instructions Recorded Confirmed Type levothyroxine 100 mcg tablet 88 mcg PO DAILY 02/19/20 02/13/23 History vits,calcium 21-iron fum 1 tablet PO DAILY 02/19/20 02/13/23 History 14 mg iron-folic acid 400 mcg tablet ( Complete) famotidine 20 mg tablet (Pepcid) 20 mg PO BID 05/04/21 02/13/23 History aspirin 81 mg capsule 81 mg PO DAILY 02/13/23 02/13/23 History Allergies Allergy/AdvReac Type Severity Reaction Status Date / Time No Known Allergies Allergy Unverified 02/22/20 12:00 Vital Signs Vital Signs - 24 hr 02/13/23 10:27 Oxygen Delivery Room Air Exam Const: Orientation/consciousness: patient oriented x3 Other: Well-developed, well-nourished female in no acute distress. Neck: Thyroid: thyroid normal Lymphatic: no lymphadenopathy noted (in neck, axilla or inguinal nodes) Resp: Effort & Inspection: normal respiratory effort Auscultation: clear to auscultation bilaterally Cardio: Rate: regular rate Rhythm: regular rhythm Heart sounds: S1 normal heart sound present and S2 normal heart sound present GI: Other: ABD: Soft, nontender, nondistended, gravid. NST reactive. TOCO: contractions every 2-3 min. No guarding or rebound tenderness. No hepatosplenomegaly. : General: Yes no CVA tenderness Other: Cervix 2/50/-2 Back/Spine/Pelvis: Back: no CVA tenderness Skin: General skin exam: normal color and no rashes or lesions noted Neuro: General: patient oriented x3 Extrem: Other: Extremities: nontender with no edema Psych: Mental Status: mental status grossly normal Affect: normal affect H&P: Results Labs Labs: Short CBC 02/13/23 Range/Units 09:40 WBC 14.8 H (4.5-10.0) K/mm3 Hgb 13.1 (12.0-15.0) g/dL Hct 39.0 (37.0-47.0) % Plt Count 265 (150-375) k/mm3 BMP 02/13/23 09:40 Sodium 132 L Potassium 4.0 Chloride 105 Carbon Dioxide 17 L BUN 16 Creatinine 1.10 H Glucose 106 Calcium 9.7 Liver Function 02/13/23 Range/Units 09:40 Total Bilirubin 0.5 (0.2-1.3) mg/dL AST 158 H (14-36) U/L ALT 184 H (6-35) U/L Alkaline Phosphatase 287 H (38-126) U/L Albumin 3.8 (3.5-5.1) g/dL Assessment and Plan Assessment and plan (1) labor: Code(s): O60.00 - Pret
[2023-02-13] MEDS: ceFAZolin 2 GM/D5W 50 ML 2 GM/50 ML BAG IVPB (10:51)
--- NOTE | 2023-02-13 10:53 | WPDHPUPDATE1 ---
History and Physical Update Update Date/Time: 02/13/23 10:53 History and Physical has been reviewed, including an updated exam of the patient. There are NO changes in the patient's condition. Risks, benefits, and alternatives have been discussed and questions answered. Patient agrees to proceed with procedure.
[2023-02-13 11:04] LABS: Rapid Plasma Reagin Non-Reactive (NonReactive)
--- NOTE | 2023-02-13 12:22 | W.PM.OBCSD ---
OB - Delivery Note Procedure Delivery date: 02/13/23 Pre-op diagnosis: Positive Group B Strep (GBS), Previous Delivery and Other (IUP at 36 2/7 weeks; labor; elevated transaminases; GBS colonization; prior , desires repeat; destired sterility) Post-op Diagnosis: Same Induction method: None Delivery monitor: External FHT and External Uterine Procedure Performed: Repeat and Other (Bilateral salpingectomies) Surgeon: Hernando Fuentes MD Anesthesia type: Spinal Description of Procedure/Findings: The patient was taken to the operating room where she was prepared and draped in the usual sterile fashion in dorsal supine position with a leftward tilt. She received cefazolin preoperatively. Spinal anesthesia was found to be adequate. A Pfannenstiel skin incision was made excising the previous scar and discarding it. The incision was carried through to the underlying layer of the fascia. The fascia was incised in the midline and the incision was extended laterally. The fascia was dissected free of the underlying rectus muscles. The rectus muscles were in the midline. The peritoneum was identified, tented up and entered sharply. The peritoneal incision was extended superiorly and inferiorly with good visualization of the bladder. The bladder blade was placed. The vesicouterine peritoneum was identified, tented up and entered sharply. The incision was extended laterally and the bladder flap was developed. The bladder blade was replaced. The uterus was then incised sharply in a transverse fashion along the lower uterine segment. The incision was extended laterally. The infant's head was delivered atraumatically to the sterile field, followed by the body. The nose and mouth were bulb suctioned. After a delay, the cord was clamped and cut. The was handed off the field. Cord blood was collected. The placenta was removed manually and was passed off the field. The uterus was exteriorized and cleared of all clots and debris. The uterine incision was reapproximated using 0 Monocryl in a running, locked fashion. Excellent hemostasis resulted as did excellent reapproximation of the normal anatomy. The left fallopian tube was then identified by following it out to the fimbriated end. It was grasped with a Zulema clamp and dissected off the ovary, ligated at the base with a free tie of 0 plain gut, and excised. The tube was passed off to be sent to pathology. Hemostasis was excellent. Attention was turned to the right fallopian tube which was similarly identified, ligated and excised. Once again, excellent hemostasis resulted. The uterus was returned the abdomen. The pelvis was irrigated copiously with warmed normal saline. The bladder flap was treated with Hemaderm. Rigorous hemostasis was assured. The fascial layer was reapproximated using 0 Vicryl in a running fashion. The skin was closed with a running, subcuticular stitch of 4 0 Vicryl. Dermaflex was applied externally. Sponge, lap, needle and instrument counts were correct. The patient was taken to the recovery room in stable condition. The infant went to the nursery in stable condition. I was present and scrubbed the entire procedure. Specimen: Yes (cord blood, bilateral Fallopian tubes, placenta) Estimated Blood Loss: 190 Drains: Yes (mcneil) Packing: No Pathology: Yes (cord blood, bilateral Fallopian tubes, placenta) Complications: None Condition: Stable Disposition: PACU Baby Date of : 02/13/23 Time of : 11:22 Weeks of gestation at delivery: 36 Infant gender: Female Weight (pounds): 6 Weight (ounces): 11 presentation: vertex Placenta delivery description: Manual Removal and Normal Configuration Cord Vessel Description: 3 Vessels score one minute: 9 score five minutes: 9
--- NOTE | 2023-02-13 12:28 | PM.OBDSVD ---
DS: Admitting Diagnosis Discharge Date 02/16/23 Admitting Diagnosis IUP at 36 2/7 weeks Labor Prior , desires repeat Elevated transaminases Desired sterility DS: Discharge Diagnosis Discharge Diagnosis (1) delivery delivered: Code(s): O82 - Encounter for delivery without indication Status: Acute (2) labor, delivered, current hospitalization: Code(s): O60.10X0 - labor with delivery, unspecified trimester, not applicable or unspecified Status: Acute (3) GBS (group B Streptococcus carrier), +RV culture, currently : Code(s): O99.820 - Streptococcus B carrier state complicating Status: Acute OB - DS: Summary OB Procedures : NST and PIH Mgmt OB Procedures Intrapartum: and Tubal ligation (tubal sterilization via salpingectomies) OB Procedures: : None Peripartum Data Procedures: Procedures Operation Date: 02/13/23 10:30 <No data on this case meets the specified criteria> Repeat LTCS with bilateral salpingectomies Time Spent with Patient Time attestation: Total time spent providing and/or coordinating discharge services: DS: Data Data Completed and Pending Labs on day of discharge: Labs from last 24 hours 02/13/23 02/13/23 09:40 09:40 WBC 14.8 H RBC 4.25 Hgb 13.1 Hct 39.0 MCV 91.8 MCH 30.8 MCHC 33.6 RDW 13.2 Plt Count 265 MPV 12.2 H Immature Gran % (Auto) 3.7 H Neut % (Auto) 74.3 H Lymph % (Auto) 16.0 L Hartley % (Auto) 5.5 Eos % (Auto) 0.1 Baso % (Auto) 0.4 Lymph # (Auto) 2.37 Hartley # (Auto) 0.8 H Eos # (Auto) 0.0 Baso # (Auto) 0.1 Abs Immat Gran (auto) 0.55 H Absolute Neuts (auto) 11.0 H Absolute Nucleated RBC 0.0 Nucleated RBC % 0.0 Sodium 132 L Potassium 4.0 Chloride 105 Carbon Dioxide 17 L Anion Gap 10 BUN 16 Creatinine 1.10 H Estim Creat Clear Calc Not Reportable Estimated GFR 56 L Glucose 106 Uric Acid Cancelled 9.1 H Calcium 9.7 Total Bilirubin 0.5 AST 158 H ALT 184 H Alkaline Phosphatase 287 H Total Protein 7.0 Albumin 3.8 RPR Non-reactive Blood Type A Negative Antibody Screen Positive Antibody Identification Pending Antigen Identification TNP GLADYS, IgG Interpret Not Performed GLADYS, Poly Interpret Negative GLADYS, Complement Interp Not Performed Discharge Plan Discharge Attending physician on discharge: Hernando Fuentes Consulting providers: Maximo Syed; Doretha Flores Discharging Clinician: Hernando Fuentes Patient Disposition: Home, Self-Care Activity: may shower, may drive after 2 weeks and pelvic rest Diet: regular Wound Care Instructions: incision open to air Discharge Instructions: Education: Mom and Baby Guide Given to: Mother Follow-Up: Call your delivering provider's office for an appointment to be seen in: 4 Weeks Mom and baby should come to the [facility] for the follow-up appointment. Appointment Date/Time: February 18, 2023 at 10:00 am What to expect at your follow-up visit: Blood Pressure Check Physical Assessment Call [phone] if you are unable to keep your appointment time. BREAST CARE: * Wear a snug supportive bra. * For engorgement discomfort: Breast Feeding: * Apply warm moist washcloths * Express milk as needed to relieve engorgement * Wear loose clothing * For sore nipples: * Identify correct latch-on * Apply warm moist washcloths before and after nursing * Air dry nipples after nursing * May apply Lansinoh cream to nipples ABDOMINAL INCISION: * Allow incision to air dry * Do NOT use lotions or powders on your incision * When showering, allow soap and water to run over the incision, but do not wash incision PERINEAL CARE: * Until bleeding stops, use your echo bottle after urinating * Campbell
[2023-02-13] MEDS: OXYTOCIN 30 UNITS/NS 500 ML 30 UNITS/500 ML BAG 125 UNITS IV CONT (13:17)
[2023-02-13] MEDS: MORPHINE SULFATE INJ (*CRX) 10 MG/ML AMP 2 MG IV PUSH ×2 (14:10→14:21)
--- NOTE | 2023-02-13 14:25 | OBPPTRN ---
Patient transferred to post room # 292 via stretcher accompanied by spouse and . PT and spouse both recipients of instructions and no barriers to learning identified at this time. PT introductions made and plan of care discussed per post op c section, pain management, breast feeding, daily care activities. PT informed of premature hypoglycemic protocol and blood sugars prior to feedings. PT received such instructions via one to one discussion, mom baby care guide and demonstrations this shift. Oriented to unit, room, information board, rooming in, admission packet and security measures. Patient verbalizes understanding.
[2023-02-13] MEDS: SIMETHICONE 80 MG TAB.CHEW PO (16:43)
[2023-02-13] MEDS: LANOLIN (LANSINOH) 7.5 GM CREAM 1 APPLIC TOPICAL (16:43)
[2023-02-13] MEDS: DOCUSATE SODIUM 100 MG CAPSULE PO (16:43)
[2023-02-13] MEDS: HYDROcodone/acetaminophen (*CRX) 5-325 MG TABLET 1 TAB PO ×2 (16:44→20:25)
[2023-02-13] MEDS: diphenhydrAMINE HCl INJ 50 MG/ML VIAL 25 MG IV PUSH (16:44)
[2023-02-13] MEDS: KETOROLAC 30 MG/ML VIAL (*BKC) IV PUSH (16:45)
[2023-02-13] MEDS: IBUPROFEN 600 MG TABLET PO (20:27)
--- NOTE | 2023-02-13 22:38 | PC.NURSE ---
Dr. Fuentes called in for update on pt. Update given including I & O, mcneil taken out, and BP. New order received to also draw a CMP in the am along with a CBC which was previously ordered.
[2023-02-14] MEDS: HYDROcodone/acetaminophen (*CRX) 5-325 MG TABLET 1 TAB PO ×5 (02:40→21:00)
[2023-02-14] MEDS: IBUPROFEN 600 MG TABLET PO ×3 (02:41→17:25)
[2023-02-14 04:15] VITALS: BP 125/90; PULSE 63; RESP 18; TEMP 36.7; O2SAT 99
[2023-02-14 05:17] LABS: Basophils Absolute Auto 0.1 K/mm3 (0.0-0.1); Basophils Percent Auto 0.4 % (0.2-1.2); Eosinophils Percent Auto 0.2 % (0-4.4); Hematocrit 35.7 % (37.0-47.0); Hemoglobin 11.7 g/dL (12.0-15.0); Immature Granulocyte Percent A 1.8 % (0-0.5); Lymphocytes Absolute Auto 2.94 K/mm3 (0.9-3.2); Lymphocytes Percent Auto 17.5 % (18.3-44.2); Mean Corpuscular HGB Conc 32.8 g/dl (32-36); Mean Corpuscular Hemoglobin 30.5 pg (26-34); Mean Corpuscular Volume 93.2 fl (80-100); Mean Platelet Volume 12.8 fl (7.4-10.4); Monocytes Absolute Auto 1.2 K/mm3 (0.1-0.6); Monocytes Percent Auto 6.9 % (2.6-8.5); Neutrophils Absolute Auto 12.3 K/mm3 (1.3-6.7); Neutrophils Percent Auto 73.2 % (45.5-73.1); Platelet Count Result 229 k/mm3 (150-375); Red Blood Count 3.83 M/mm3 (4.2-5.4); Red Cell Distribution Width 13.4 % (11.5-14.5); White Blood Count 16.8 K/mm3 (4.5-10.0)
[2023-02-14 05:30] LABS: Alanine Aminotransferase 216 U/L (6-35); Alkaline Phosphatase 207 U/L (38-126); Anion Gap 3 mmol/L (8-16); Aspartate Amino Transferase 169 U/L (14-36); Bilirubin,Total 0.4 mg/dL (0.2-1.3); Blood Urea Nitrogen 16 mg/dL (7-17); Calcium 8.8 mg/dL (8.4-10.2); Carbon Dioxide 24 mmol/L (22-30); Chloride 105 mmol/L (98-107); Estimated CRCL calculation 79 ml/min; Estimated Glomerular Filt Rate 56; Glucose 105 mg/dL (65-110); Potassium 4.7 mmol/L (3.4-5.0); Sodium 132 mmol/L (137-145)
[2023-02-14] MEDS: LEVOTHYROXINE SODIUM 88 MCG TABLET PO (05:31)
[2023-02-14 07:25] VITALS: BP 123/79; PULSE 69; RESP 16; TEMP 36.8; O2SAT 98
--- NOTE | 2023-02-14 07:30 | PC.NURSE ---
PT introductions made and plan of care discussed per post op c section, pain management, breast feeding, daily care activities, baby blood sugars and pumping. PT sole recipient of instructions and no barriers to learning identified at this time. PT received such instructions per one to one discussion, mom baby care guide and demonstrations this shift. PT verbalized understanding of such care.
[2023-02-14] MEDS: SIMETHICONE 80 MG TAB.CHEW PO ×3 (10:14→17:23)
[2023-02-14] MEDS: DOCUSATE SODIUM 100 MG CAPSULE PO ×2 (10:14→17:23)
[2023-02-14 10:15] VITALS: PULSE 69; RESP 16; O2SAT 98
[2023-02-14 12:14] VITALS: BP 123/85; PULSE 74; RESP 16; TEMP 37.1; O2SAT 98
--- NOTE | 2023-02-14 12:39 | PM.OBPNVD ---
OB - PN: Subj Subjective Date/time seen: 02/14/23 12:39 Narrative: Pain OK. Tolerating diet. OB - PN: Obj Data Labs 02/14/23 04:03 02/14/23 04:03 Labs: Laboratory Results - last 24 hr 02/13/23 02/14/23 09:40 04:03 WBC 16.8 H RBC 3.83 L Hgb 11.7 L Hct 35.7 L MCV 93.2 MCH 30.5 MCHC 32.8 RDW 13.4 Plt Count 229 MPV 12.8 H Immature Gran % (Auto) 1.8 H Neut % (Auto) 73.2 H Lymph % (Auto) 17.5 L [place] % (Auto) 6.9 Eos % (Auto) 0.2 Baso % (Auto) 0.4 Lymph # (Auto) 2.94 [place] # (Auto) 1.2 H Eos # (Auto) 0.0 Baso # (Auto) 0.1 Abs Immat Gran (auto) 0.30 H Absolute Neuts (auto) 12.3 H Absolute Nucleated RBC 0.0 Nucleated RBC % 0.0 Sodium 132 L Potassium 4.7 Chloride 105 Carbon Dioxide 24 Anion Gap 3 L BUN 16 Creatinine 1.10 H Estim Creat Clear Calc 79 Estimated GFR 56 L Glucose 105 Calcium 8.8 Total Bilirubin 0.4 AST 169 H ALT 216 H Alkaline Phosphatase 207 H Total Protein 6.0 L Albumin 3.0 L Antibody Identification Passive Due to RH Imm Glob Antigen Identification Cancelled OB - PN A/P Assessment and Plan (1) delivery delivered: Code(s): O82 - Encounter for delivery without indication Status: Acute Assessment and Plan: A: POD#1, s/p repeat with bilateral salpingectomies. Clinically resolving preeclampsia, with elevated transaminases and creatinine, but normotensive. No edema, no symptoms of preeclampsia, and excellent diuresis. P: Routine care. Plan to repeat labs on an outpatient basis. (2) Preeclampsia: Code(s): O14.90 - Unspecified pre-eclampsia, unspecified trimester Status: Acute Time Spent With Patient Time: Total time spent is greater than 50% in coordination of care (as documented) at patient's floor/unit and/or counseling patient: Exam Narrative: AVSS I/O OK - excellent urine output ABD soft, nontender, fundus firm. Incision c/d/i. EXT nontender
--- NOTE | 2023-02-14 14:13 | WPDANLDPN2 ---
Anes-Prog Note L&D Date/Time: 02/14/23 14:13 Neuro status: Neuro function grossly intact. Vital Signs: Last Vital Signs Temp 37.1 C 02/14/23 12:14 Pulse 74 02/14/23 12:14 Resp 16 02/14/23 12:14 BP 123/85 02/14/23 12:14 Pulse Ox 98 02/14/23 12:14 O2 Del Method Room Air 02/13/23 23:30 Pain score (VAS): 0 I/O: Intake & Output 02/13/23 02/14/23 02/14/23 23:59 07:59 15:59 Intake Total 994 1650 Output Total 2350 1700 Balance -1356 -50 Patient feedback: Patient satisfied with anesthetic care.
--- NOTE | 2023-02-14 14:14 | WPDANLDNPN2 ---
Anes-Prog Note L&D-Neuraxial Date/Time: 02/14/23 14:14 Patient feedback: Patient satisfied with post-operative pain management.
[2023-02-14] MEDS: POLYSACCHARIDE IRON COMPLEX 150 MG CAPSULE PO (17:23)
[2023-02-14 17:24] VITALS: BP 124/82; PULSE 72; RESP 18; TEMP 36.9; O2SAT 98
[2023-02-14 21:00] VITALS: BP 144/80; PULSE 69; RESP 20; TEMP 36.1
[2023-02-15] MEDS: HYDROcodone/acetaminophen (*CRX) 5-325 MG TABLET 1 TAB PO ×5 (00:32→14:20)
[2023-02-15] MEDS: IBUPROFEN 600 MG TABLET PO ×4 (00:32→21:47)
[2023-02-15] MEDS: SIMETHICONE 80 MG TAB.CHEW PO ×4 (03:58→21:47)
--- NOTE | 2023-02-15 06:56 | PM.OBPNVD ---
OB - PN: Subj Subjective Date/time seen: 02/15/23 06:56 Patient comments: no complaints and pain well controlled baby status: doing well and nursing well OB - PN: Obj Data Labs 02/14/23 04:03 02/14/23 04:03 OB - PN A/P Plan day: 2 Plan: routine care Time Spent With Patient Time: Total time spent is greater than 50% in coordination of care (as documented) at patient's floor/unit and/or counseling patient: Time with patient: less than 15 minutes Exam Const: General: cooperative, healthy appearing and comfortable Nutritional Appearance: average body habitus Orientation/consciousness: oriented to person, oriented to place and oriented to time HENMT: Head: normal to inspection Resp: Effort & Inspection: normal respiratory effort Cardio: Rate: regular rate Rhythm: regular rhythm Heart sounds: S1 normal heart sound present and S2 normal heart sound present GI: Inspection: normal to inspection and incision (cdi)
[2023-02-15] MEDS: LEVOTHYROXINE SODIUM 88 MCG TABLET PO (07:23)
[2023-02-15] MEDS: DOCUSATE SODIUM 100 MG CAPSULE PO ×2 (07:26→17:54)
[2023-02-15 09:25] VITALS: BP 128/88; PULSE 74; RESP 16; TEMP 36.9; O2SAT 100
[2023-02-15] MEDS: FAMOTIDINE 20 MG TABLET PO (11:11)
[2023-02-15] MEDS: HYDROcodone/acetaminophen (*CRX) 10-325 MG TABLET 1 TAB PO ×2 (17:57→21:48)
[2023-02-15 20:00] VITALS: BP 142/94; PULSE 79; RESP 16; TEMP 36.8; O2SAT 98
[2023-02-16] MEDS: LEVOTHYROXINE SODIUM 88 MCG TABLET PO (05:30)
[2023-02-16] MEDS: SIMETHICONE 80 MG TAB.CHEW PO (05:30)
[2023-02-16] MEDS: HYDROcodone/acetaminophen (*CRX) 5-325 MG TABLET 1 TAB PO ×3 (05:30→11:54)
[2023-02-16] MEDS: IBUPROFEN 600 MG TABLET PO ×2 (05:30→11:53)
--- NOTE | 2023-02-16 05:47 | P.PNOB_ITS ---
OB - PN: Subj Subjective Date/time seen: 02/16/23 05:47 Patient comments: no complaints and pain well controlled baby status: doing well and nursing well OB - PN: Obj Data Labs 02/14/23 04:03 02/14/23 04:03 OB - PN A/P Plan day: 2 Plan: routine care, discharge home and follow up 6 weeks Time Spent With Patient Time: Total time spent is greater than 50% in coordination of care (as documented) at patient's floor/unit and/or counseling patient: Time with patient: less than 15 minutes Exam Const: General: cooperative, healthy appearing and comfortable Nutritional Appearance: average body habitus Orientation/consciousness: oriented to person, oriented to place and oriented to time Resp: Effort & Inspection: normal respiratory effort Cardio: Rate: regular rate Rhythm: regular rhythm Heart sounds: S1 n ormal heart sound present and S2 normal heart sound present GI: Inspection: normal to inspection
[2023-02-16 08:45] VITALS: BP 128/90; PULSE 80; RESP 16; TEMP 36.9; O2SAT 98
[2023-02-16] MEDS: DOCUSATE SODIUM 100 MG CAPSULE PO (08:50)
[2023-02-18 10:35] VITALS: BP 129/89; PULSE 82; RESP 18; TEMP 37.3; O2SAT 100
== END 2023-02-16 12:05 | disposition home or self-care (01) | DRG 785 ==
LOC: ANHLDR 12:33 → ANHOB2 02-16 10:03 → ANHLDR 02-18 12:56 → ANHOB2 02-18 12:56
PROVIDERS: Admitting Provider Obstetrics & Gynecology; PCP Internal Medicine; Visit Provider Obstetrics & Gynecology
PROC: 10D00Z1 Extraction of Products of Conception, Low, Open Approach (ICD-10-PCS; CPT 59514; principal; 2023-02-13 10:30)
DX: O60.14X0 Preterm labor third trimester with preterm delivery third trimester, not applicable or unspecified (principal); Z37.0 Single live birth; Z3A.36 36 weeks gestation of pregnancy; O34.211 Maternal care for low transverse scar from previous cesarean delivery; O99.824 Streptococcus B carrier state complicating childbirth; Z30.2 Encounter for sterilization; O14.94 Unspecified pre-eclampsia, complicating childbirth; O99.284 Endocrine, nutritional and metabolic diseases complicating childbirth; E03.9 Hypothyroidism, unspecified
CPT/HCPCS: 36415; 80053; 84550; 85025; 86592; 86850; 86880; 86900; 86901; 88302; 88307; A9270; J0690; J1200; J1885; J2270; J2274; J2371; J2405; J2590; J7120

== ENCOUNTER 2023-04-04 08:53 | Outpatient (CLI) | payer OTHER, SELFPAY ==
--- NOTE | ~2023-04-04 | US_ITS ---
Limited Abdominal Sonogram: Real-time sonographic imaging of the right upper quadrant was performed. Clinical History: Epigastric pain Findings: The liver appears heterogeneous, with no evidence of bile duct dilatation. There is an 11 mm echogenic mass in the liver. Main portal vein demonstrates normal direction of flow. The gallbladd er is well distended, and appears normal with no evidence of gallstone or wall thickening. The common bile duct measures 3 mm. The visualized pancreas, aorta, and IVC are unremarkable. Impression: Probable diffuse fatty infiltration of liver versus other chronic liver disease. 11 mm echogenic hepatic mass, most likely small hemangioma. Pre and postcontrast MR should be conside red to further confirm, as indicated. Reviewed, dictated and finalized at [facility]. R TECHNICIAN Impression: Probable diffuse fatty infiltration of liver versus other chronic liver disease . 11 mm echogenic hepatic mass, most likely small hemangioma. Pre and postcontras t MR should be considered to further confirm, as indicated.
== END 2023-04-04 08:54 | disposition home or self-care (01) ==
LOC: CHSIMG 08:54
PROVIDERS: PCP Internal Medicine; Visit Provider Internal Medicine
DX: R10.13 Epigastric pain (principal); R11.0 Nausea; R16.0 Hepatomegaly, not elsewhere classified
CPT/HCPCS: 76705

== ENCOUNTER 2024-06-24 00:29 | Day surgery (SDC) | payer OTHER, SELFPAY ==
[2024-06-17 12:56] VITALS: BMI 36.5
--- OUTSIDE RECORDS SUMMARY | 2024-06-24 00:31 | XMS_ITS | Clinical Summary ---
Author Organization [place] [id number] [facility] Address [address] [place] [address] Care Team Providers Care Inside Sales Account Executive Name Role Phone Moise Colunga MD Primary Care Provider [phone] Allergies No known active allergies Medications levothyroxine (SYNTHROID) 88 mcg tablet Take 1 tablet (88 mcg total) by mouth daily 4 Active famotidine (PEPCID) 20 mg tablet Take 1 tablet (20 mg total) by mouth as needed for indigestion or heartburn Active lansoprazole (PREVACID) 30 mg capsule 1 capsule (30 mg total) 2 (two) times a day 5 Active multivit with calcium,iron,m in (MULTIPLE VITAMIN, WOMENS ORAL) Take by mouth Act moises no.167/folic acid/dha (ONE-A-DAY ORAL) Take by mouth QD 06/16/19 25 Discontin ued(Thera py completed ) Active Problems Problem Noted Date Diagnosed Date Other specified hypothyroidism 08/26/2023 Obesity 08/26/2023 Hepatic steatosis 08/26/2023 Liver lesion 08/26/2023 Pre-eclampsia in third trimester 08/26/2023 Encounters Date Type Department Care Team Description 06/17/2024 Documentation [facility] Gastroenterology [address] [place] [address] Medicine 12th [place] [address] [place] [address] Jil Kurtz RN 06/15/2024 11:40 AM SPONGE PRESS OPERATOR Office Visit [facility] Gastroenterology [address] [place] [address] Medicine [facility] [place] [address] [place] [address] Adelaida Barreto MD Steatosis of liver (Primary Dx) 06/15/2024 11:30 AM SPONGE PRESS OPERATOR Procedure visit [facility] Gastroenterology [address] [facility] 12th [place] [address] [place] [address] Steatosis of liver 06/15/2024 Results Follow-Up [facility] Gasteroenterology [address] [facility] 12th [place] [address] [place] [address] Adelaida Barreto MD from Last 3 Months Family History Medical History Relation Name Comments Hypertension Father Relation Name Status Comments Father Social History Tobacco Use Types Packs/Day Years Used Date Smoking Tobacco: Former Cigarettes Tobacco Cessation:Counseling Given: Not Answered Comments Unknown Sex and Gender Information Value Date Recorded Sex Assigned at Not on file Legal Sex Female 11:41 AM SPONGE PRESS OPERATOR Gender Identity Not on file Sexual Orientation Not on file Obstetrics History Last Filed Vital Signs Vital Sign Reading Time Taken Comments Blood Pressure 113/73 06/15/2024 11:40 AM SPONGE PRESS OPERATOR Pulse 63 06/15/2024 11:40 AM SPONGE PRESS OPERATOR Temperature 36.8 C (98.3 F) 06/15/2024 11:40 AM SPONGE PRESS OPERATOR Respiratory Rate - - Oxygen Saturation 99% 06/15/2024 11:40 AM SPONGE PRESS OPERATOR Inhaled Oxygen Concentration - - Weight 108.9 kg (240 lb) 06/15/2024 11:40 AM SPONGE PRESS OPERATOR Height 175.3 cm (5' 9 ) 06/15/2024 11:40 AM SPONGE PRESS OPERATOR Body Mass Index 35.44 06/15/2024 11:40 AM SPONGE PRESS OPERATOR Plan of Treatment Health Maintenance Due Date Last Done Comments Cervical Cancer Screening 1986 Depression Screening 1986 Varicella Vaccines (1 of 2 - 13+ 2-dose series) 1999 Regular Well Visit/Exam 18-64 02/20/2004 Pneumococcal vaccine <65 (1 of 2 - PCV) 2005 Influenza Vaccine (#1) 2023 DTaP/Tdap/Td Vaccine (3 - Td or Tdap) 01/03/2033 01/03/2023, 05/01/2021 Hepatitis B Screening Completed 08/26/2023 Hepatitis C Screening Completed 08/26/2023 HPV Vaccines Aged Out No longer eligi ble based on patient's age to complete this topic Procedures Procedure Name Priority Date/Time Associated Diagnosis Comments LIVER ELASTOGRAPHY W/O IMAGING W/I&R Routine 06/15/2024 1:07 PM SPONGE PRESS OPERATOR Steatosis of liver HEPATITIS C ANTIBODY Routine 08/26/2023 9:21 AM CDT Steatosis of liver from Last 3 Months or Most Recently Relevant to Health Maintenance Results * Liver Elastography w/o Imaging W/I&R -[facility] (All Locations) (06/15/2024 1:07 PMCST) Anatomical Region Laterality Modality Other Adealida Barreto MD GI PROCEDURE ORDERABLES Final Result * Hepatitis C antibody Blood (08/26/2023 9:21 AM CDT) Hep C Ab Nonreactive Nonreactive Comment:Antibodies to HCV no t detected. Does NOT exclude the possibility of recent exposure to HCV. Current interpretive data was last revised on 21 Blood 08/26/2023 9:21 AM CDT 08/26/2023 9:50 AM CDT Adelaida Barreto MD LAB MICROBIOLOGY - GENE RAL ORDERABLES Final Result Performing Organization Address City/State/ZIP [place] Phone Number [facility] [address] [facility] [address] Department [place] [address] from Last 3 Months or Most Recently Relevant to Health Maintenance [place] [place] [id number] [facility] [id number] Care Teams Inside Sales Account Executive Relationship Specialty Start Date End Date Moise Colunga MD PCP - General Internal Medicine 04/17/23
--- OUTSIDE RECORDS SUMMARY | 2024-06-24 00:31 | XMS_ITS | Referral Summary ---
Author Organization [place] [id number] [facility] Address [address] [place] [address] Care Team Providers Care Iron Piler Name Role Phone Moise Colunga MD Primary Care Provider [phone] Encounters Date Type Department Care Team Description 06/17/2024 Documentation [facility] Gastroenterology [address] [place] [address] [place] [address] Jil Kurtz RN 06/15/2024 Results Follow-Up [facility] Gasteroenterology [address] [place] [address] [place] [address] Adelaida Barreto MD 06/15/2024 11:30 AM MIXING MACHINE ATTENDANT Procedure visit [facility] Gastroenterology [address] [place] [address] [place] [address] Steatosis of liver 06/15/2024 11:40 AM MIXING MACHINE ATTENDANT Office Visit [facility] Gastroenterology [address] [place] [address] [place] [address] Adelaida Barreto MD Steatosis of liver (Primary Dx) from Last 3 Months Allergies No known active allergies Medications levothyroxine (SYNTHROID) 88 mcg tablet Take 1 tablet (88 mcg total) by mouth daily Active famotidine (PEPCID) 20 mg tablet Take [...] lesion 08/26/2023 Pre-eclampsia in third trimester 08/26/2023 Social History Tobacco Use Types Packs/Day Years Used Date Smoking Tobacco: Former Cigarettes Tobacco Cessation:Counseling Given: Not Answered Comments Unknown Sex and Gender Information Value Date Recorded Sex Assigned at Not on file Legal Sex Female 11:41 AM MIXING MACHINE ATTENDANT Gender Identity Not on file Sexual Orientation Not on file Last Filed Vital Signs Vital Sign Reading Time Taken Comments Blood Pressure 113/73 06/15/2024 11:40 AM MIXING MACHINE ATTENDANT Pulse 63 06/15/2024 11:40 AM MIXING MACHINE ATTENDANT Temperature 36.8 C (98.3 F) 06/15/2024 11:40 AM MIXING MACHINE ATTENDANT Respiratory Rate - - Oxygen Saturation 99% 06/15/2024 11:40 AM MIXING MACHINE ATTENDANT Inhaled Oxygen Concentration - - Weight 108.9 kg (240 lb) 06/15/2024 11:40 AM MIXING MACHINE ATTENDANT Height 175.3 cm (5' 9 ) 06/15/2024 11:40 AM MIXING MACHINE ATTENDANT Body Mass Index 35.44 06/15/2024 11:40 AM MIXING MACHINE ATTENDANT Plan of Treatment Not on file Procedures Procedure Name Priority Date/Time Associated Diagnosis Comments LIVER ELASTOGRAPHY W/O IMAGING W/I&R Routine 06/15/2024 1:07 PM MIXING MACHINE ATTENDANT Steatosis of liver HEPATITIS C ANTIBODY Routine 08/26/2023 9:21 AM CDT Steatosis of liver from Last 3 Months or Most Recently Relevant to Health Maintenance Results * Liver Elastography w/o Imaging W/I&R -[facility] (All Locations) (06/15/2024 1:07 PMCST) Anatomical Region Laterality Modality Other Adelaida Barreto MD GI PROCEDURE ORDERABLES Final Result [...] MICROBIOLOGY - GENE RAL ORDERABLES Final Result [facility] Department [place] [address] from Last 3 Months or Most Recently Relevant to Health Maintenance Insurance [facility] [id number] [facility] [id number] Care Teams Iron Piler Relationship Specialty Start Date End Date Moise Colunga MD PCP - General Internal Medicine 04/17/23
--- OUTSIDE RECORDS SUMMARY | 2024-06-24 00:31 | XMS_ITS | Encounter Summary ---
Author Organization [facility] Address [address] [place] [address] Phone Care Team Providers Care Watch Technician Name Role Phone Moise Colunga MD Primary Care Provider [phone] Encounter Details Date Type Department Care Team (Late st Contact Info) Description 06/15/2024 Results Follow-Up [facility] Gasteroenterology [address] [facility] 12th [place] [address] [place] [address] Adelaida Barreto MD [address] [place] [address] Social History Tobacco Use Types Packs/Day Years Used Date Smoking Tobacco: Former Cigarettes Comments Unknown Sex and Gender Information Value Date Recorded Sex Assigned at Not on file Legal Sex Female 11:41 AM SUPERVISOR BRAIDING Gender Identity Not on file Sexual Orientation Not on file documented as of this encounter Plan of Treatment Not on file documented as of this encounter Visit Diagnoses Not on filedocumented in this encounter Care Teams Watch Technician Relationship Specialty Start Date End Date Moise Colunga MD PCP - General Internal Medicine 04/17/23 documented as of this encounter
[2024-06-24 14:00] VITALS: BP 126/81; PULSE 74; RESP 18; TEMP 36.1; O2SAT 100; BMI 36.1
[2024-06-24 14:03] LABS: BEDSIDEPREGUCG Negative (Negative)
[2024-06-24] MEDS: LACTATED RINGERS 1,000 ML 150 ML IV CONT (14:07)
--- NOTE | 2024-06-24 14:11 | WPDANESEPPF ---
Anes - Initial Pre Proc Eval Procedure: Operation Date: 06/24/24 14:30 Proposed Procedures p Esophagogastroduodenoscopy - Tai Zuluaga MD Date/Time: 06/24/24 14:11 Surgeon: Tai Zuluaga MD Pre Op Diagnosis: GERD,Nausea Patient Data Age: 39 Gender: F Height: 1.73 m Weight: 108 kg Last Vital Signs Temp 36.1 C L 06/24/24 14:00 Pulse 74 06/24/24 14:00 Resp 18 06/24/24 14:00 BP 126/81 06/24/24 14:00 Pulse Ox 100 06/24/24 14:00 O2 Del Method Room Air 06/24/24 14:00 Allergies Allergy/AdvReac Type Severity Reaction Status Date / Time No Known Allergies Allergy Verified 06/24/24 13:59 Home Medications ?Medication ?Instructions ?Recorded ?Confirmed ?Type levothyroxine 100 mcg tablet 88 mcg PO DAILY 02/19/20 06/24/24 History lansoprazole 30 mg capsule,delayed 30 mg PO BID 1 month #60 caps 04/16/24 06/24/24 Rx release (Prevacid) multivitamin (Daily Multi-Vitamin 1 tablet PO DAILY 04/16/24 06/24/24 History tablet) Laboratory Tests 06/24/24 14:00 POC Urine HCG, Qual Negative (Negative) Patient hx anesthesia problems: none Family hx anesthesia problems: none Results Review: All pre-operative results and documents have been reviewed as part of the pre-operative evaluation. [facility] Past Medical History Medical History GERD (gastroesophageal reflux disease) Nausea and vomiting Elevated liver enzymes Obesity Hypothyroidism Surgical History Surgical History History of delivery History of appendectomy History of removal of cyst Family History Family History Father Hypertension Social History Social History Smoking packs per day: 0.5 Smoking cigarettes per day: 10.0 Years smoked: 15 Smoking pack-years: 7.50 Smoking status: Former smoker Second hand tobacco smoke exposure: No Alcohol intake: current Drinks per week: 4 Alcohol use details: Wine Substance use: never Substance use type: does not use Lack of Transportation: No Lack of Food: Never True Current Housing: I Have Housing Concerned About Future Housing: No Difficulty Paying Gas/Electric Bills: No Difficulty Paying for Meds: No Currently Unemployed: YES Education: Bachelor's Degree Difficulty w/ Childcare or Family Care: No Living arrangements: with family Spiritual care concerns: No Anes - Eval Final PreProcedure Day of Procedure 06/24/24 14:11 Patient weight: obese Heart: regular rate and rhythm Lungs: clear to auscultation Airway: Mallampati scale class II Neurological: alert and oriented Last oral intake: >/= 8 hours ASA classification: III Emergent: no Anesthetic plan: proceed Anesthesia type and monitoring: general GIVS and standard monitoring Results Review: All pre-operative results and documents have been reviewed as part of the pre-operative evaluation. Informed Consent: The patient's anesthetic plan and its attendant risks and benefits were discussed with the patient/family/POA. Questions were solicited and answers provided to the satisfaction of the patient/family/POA.
--- NOTE | 2024-06-24 15:13 | PM.HPGS ---
History of Present Illness History of Present Illness Consent: Risks, benefits, and alternatives have been discussed and questions answered. Patient agrees to proceed with procedure. Chief complaint: GERD,Nausea Narrative: Nita Valencia is a 39 year old female with n/v, gerd since had her baby but this has improved since started using prevacid Review of Systems Review of Systems: All systems reviewed & are unremarkable except as noted in HPI and below PMFSH Past Medical History Medical History GERD (gastroesophageal reflux disease) Nausea and vomiting Elevated liver enzymes Obesity Hypothyroidism Surgical History Surgical History History of delivery History of appendectomy History of removal of cyst Family History Family History Father Hypertension Social History Social History Smoking packs per day: 0.5 Smoking cigarettes per day: 10.0 Years smoked: 15 Smoking pack-years: 7.50 Smoking status: Former smoker Second hand tobacco smoke exposure: No Alcohol intake: current Drinks per week: 4 Alcohol use details: Wine Substance use: never Substance use type: does not use Lack of Transportation: No Lack of Food: Never True Current Housing: I Have Housing Concerned About Future Housing: No Difficulty Paying Gas/Electric Bills: No Difficulty Paying for Meds: No Currently Unemployed: YES Education: Bachelor's Degree Difficulty w/ Childcare or Family Care: No Living arrangements: with family Spiritual care concerns: No Meds Home Medications and Allergies Home Medications ?Medication ?Instructions ?Recorded ?Confirmed ?Type levothyroxine 100 mcg tablet 88 mcg PO DAILY 02/19/20 06/24/24 History lansoprazole 30 mg capsule,delayed 30 mg PO BID 1 month #60 caps 04/16/24 06/24/24 Rx release (Prevacid) multivitamin (Daily Multi-Vitamin 1 tablet PO DAILY 04/16/24 06/24/24 History tablet) Allergies Allergy/AdvReac Type Severity Reaction Status Date / Time No Known Allergies Allergy Verified 06/24/24 13:59 Vital Signs Vital Signs - 24 hr 06/24/24 14:00 Temperature 97 F L Pulse Rate 74 Respiratory Rate 18 Blood Pressure 126/81 Pulse Oximetry 100 Oxygen Delivery Room Air Exam Const: General: comfortable and no acute distress HENMT: Face/Nose/Sinus: Normal nares present Eyes: General: appearance normal, both eyes and all related structures Neck: Neck: no JVD Resp: Auscultation: clear to auscultation bilaterally Cardio: Rate: regular rate Rhythm: regular rhythm GI: Inspection: non-distended GI Palp: Yes Soft to palpation Skin: General skin exam: normal color Neuro: Speech: normal speech Extrem: General: normal to inspection Psych: Mental Status: mental status grossly normal Assessment and Plan Assessment and plan (1) GERD (gastroesophageal reflux disease): Code(s): K21.9 - Gastro-esophageal reflux disease without esophagitis Status: Acute Assessment and Plan: egd with bx (2) Nausea and vomiting: Code(s): R11.2 - Nausea with vomiting, unspecified Status: Acute
[2024-06-24 15:23] VITALS: BP 121/76; PULSE 70; RESP 29; O2SAT 100
[2024-06-24 15:33] VITALS: BP 125/86; PULSE 66; RESP 30; O2SAT 100
[2024-06-24 15:43] VITALS: BP 129/97; PULSE 64; RESP 19; O2SAT 100
== END 2024-06-24 15:48 | disposition home or self-care (01) ==
PROVIDERS: Anesthesiology; PCP Internal Medicine; Referring Provider Nurse Practitioner Family; Visit Provider Internal Medicine Gastroenterology
PROC: 0DJ08ZZ Inspection of Upper Intestinal Tract, Via Natural or Artificial Opening Endoscopic (ICD-10-PCS; CPT 43239; principal; 2024-06-24 14:30)
DX: K21.00 Gastro-esophageal reflux disease with esophagitis, without bleeding (principal); K29.50 Unspecified chronic gastritis without bleeding; E03.9 Hypothyroidism, unspecified; E66.9 Obesity, unspecified; Z68.36 Body mass index [BMI] 36.0-36.9, adult; Z98.890 Other specified postprocedural states; Z87.891 Personal history of nicotine dependence
CPT/HCPCS: 43239; 88305; J2003; J2704; J7120